=== PATIENT | female | born 1995 | race Caucasian/White ===

== ENCOUNTER 2021-07-04 09:22 | Outpatient (CLI) | payer OTHER, SELFPAY ==
[2021-07-04 10:09] LABS: Basophils Absolute Auto 0.1 K/mm3 (0.0-0.1); Basophils Percent Auto 0.7 % (0.2-1.2); Eosinophils Absolute Auto 0.2 K/mm3 (0-0.3); Eosinophils Percent Auto 2.3 % (0-4.4); Hematocrit 45.6 % (37.0-47.0); Hemoglobin 14.8 g/dL (12.0-15.0); Immature Granulocyte Absolute 0.02 K/mm3 (0.00-0.031); Immature Granulocyte Percent A 0.2 % (0-0.5); Lymphocytes Absolute Auto 3.69 K/mm3 (0.9-3.2); Mean Corpuscular HGB Conc 32.5 g/dl (32-36); Mean Corpuscular Hemoglobin 29.5 pg (26-34); Mean Corpuscular Volume 90.8 fl (80-100); Monocytes Absolute Auto 0.6 K/mm3 (0.1-0.6); Neutrophils Absolute Auto 4.4 K/mm3 (1.3-6.7); Neutrophils Percent Auto 48.8 % (45.5-73.1); Platelet Count Result 320 k/mm3 (150-375); Red Blood Count 5.02 M/mm3 (4.2-5.4); Red Cell Distribution Width 12.7 % (11.5-14.5)
[2021-07-07 07:15] LABS: Progesterone 6.5 ng/mL (***)
== END 2021-07-04 09:23 | disposition home or self-care (01) ==
LOC: ANHLAB 09:31
PROVIDERS: PCP Internal Medicine
DX: N97.9 Female infertility, unspecified (principal)
CPT/HCPCS: 36415; 84144; 84443; 85025

== ENCOUNTER 2022-05-14 03:27 | Emergency (ER) | payer OTHER, SELFPAY ==
[2022-05-14 03:37] VITALS: BP 127/83; PULSE 94; RESP 18; TEMP 36.6; O2SAT 100
--- NOTE | 2022-05-14 03:56 | ED.GENADULT ---
HPI - General Adult General Chief complaint: Vaginal Bleeding Stated complaint: vaginal bleeding, 6 weeks preg Time Seen by Provider: 05/14/22 03:37 History of Present Illness HPI narrative: 26-year-old female presenting to the emergency department for evaluation of vaginal bleeding. Patient suspects she is approximately 6 weeks . Patient has had follow-up with SUPERVISOR EVAPORATOR but has not yet had an ultrasound with this . This is the patient's first . Patient states that she woke up this morning and was having lower abdominal cramping and vaginal bleeding. Patient states that she woke up she had intense abdominal cramping that has since improved. Patient states the vaginal bleeding has also improved. Related Data Allergies Allergy/AdvReac Type Severity Reaction Status Date / Time No Known Allergies Allergy Unverified 01/03/18 14:30 Review of Systems Review of Systems: CONSTITUTIONAL: Denies fever, chills, or sweats. EYES: Denies visual changes, redness, or discharge. ENT: Denies rhinorrhea, congestion, sore throat, or otalgia. CARDIOVASCULAR: Denies chest pain, palpitations, or edema. RESPIRATORY: Denies cough or dyspnea. GASTROINTESTINAL: Denies abdominal pain, nausea, vomiting, or diarrhea. GENITOURINARY: See HPI SKIN: Denies rash or itching. MUSCULOSKELETAL: Denies back pain, joint pain, or myalgia. NEUROLOGIC: Denies headache, numbness, or weakness. Exam Narrative: APPEARANCE: Well appearing, no pain, no distress, well-nourished. HEAD: normocephalic, atraumatic. EYES: PERRLA/EOMI, conjunctivae clear. NOSE: Normal no drainage NECK: Supple. No adenopathy, no masses. RESPIRATORY: Airway patent, respirations nonlabored. Clear to auscultation bilaterally, no rales, rhonchi, wheezing. CARDIOVASCULAR: Regular rate and rhythm without murmurs rubs or gallops. ABDOMINAL: Soft, normal bowel sounds, some suprapubic tenderness to palpation. Pelvic exam: Some brown vaginal bleeding. No hemorrhage MUSCULOSKELETAL: Moves all extremities. Strength/ROM intact, No edema, No calf tenderness. NEURO: Alert. Cranial nerves II through XII intact. Grossly intact Course Course Emergency Course: Patient does feel improved with treatment. Patient states she does have some abdominal cramping but states it is significantly improved. Patient states her nausea is also improved. Patient was updated on the importance of having close follow-up with SUPERVISOR EVAPORATOR and on the reasons to return to the emergency department. All questions and concerns were addressed. Patient was well-appearing at time of discharge. Patient is a positive. No RhoGAM was given. Bedside ultrasound showed possible pole within the uterus. No definitive IUP was seen. Vital Signs Vital signs: Vital Signs Temperature 97.9 F 05/14/22 03:37 Pulse Rate 94 05/14/22 03:37 Respiratory Rate 18 05/14/22 03:37 Blood Pressure 127/83 05/14/22 03:37 Pulse Oximetry 100 05/14/22 03:37 Oxygen Delivery Room Air 05/14/22 03:37 Temperature 97.9 F 05/14/22 03:37 Pulse Rate 94 05/14/22 03:37 Respiratory Rate 18 05/14/22 03:37 Blood Pressure 127/83 05/14/22 03:37 Pulse Oximetry 100 05/14/22 03:37 Oxygen Delivery Room Air 05/14/22 03:37 Medical Decision Making Vital Signs Vital Signs: Vital Signs Temperature 97.9 F 05/14/22 03:37 Pulse Rate 94 05/14/22 03:37 Respiratory Rate 18 05/14/22 03:37 Blood Pressure 127/83 05/14/22 03:37 Pulse Oximetry 100 05/14/22 03:37 Oxygen Delivery Room Air 05/14/22 03:37 Temperature 97.9 F 05/14/22 03:37 Pulse Rate 94 05/14/22 03:37 Respiratory Rate 18 05/14/22 03:37 Blood Pressure 127/83 05/14/22 03:37 Pulse Oximetry 100 05/14/22 03:37 Oxygen Delivery Room Air 05/14/22 03:37 Lab Data Result diagrams: 05/14/22 04:28 05/14/22 04:28 Labs: Lab Results 05/14/22 05/14/22 05/14/22 Range/Units 03:56 04:28 04:
[2022-05-14 04:02] LABS: Appearance Urine Turbid (Clear); Bilirubin Urine 1+ (Negative); Blood Urine 3+ (Negative); Color Urine Amber (Yellow); Glucose Urine UA Negative (Negative); Ketones Urine Trace mg/dL (Negative); Leukocyte Esterase Ur Trace LEU/UL (Negative); Nitrate Urine Negative (Negative); Protein Urine 3+ mg/dL (Negative); Specific Grav Ur >= 1.030 (1.001-1.035); Urobilinogen Urine 0.2 mg/dL (<2.0); pH Urine 6.5 (5.0-9.0)
[2022-05-14 04:22] LABS: Add Urine Microscopic? YES; Bacteria Urine Trace /hpf; Mucus Urine Few /lpf; RBC Urine >75 /hpf (0-2); Squamous Epithelial Cell Urine Many /hpf (Few); WBC Urine 21-30 /hpf
[2022-05-14 04:41] LABS: Basophils Absolute Auto 0.1 K/mm3 (0.0-0.1); Basophils Percent Auto 0.6 % (0.2-1.2); Eosinophils Absolute Auto 0.2 K/mm3 (0-0.3); Eosinophils Percent Auto 1.7 % (0-4.4); Hematocrit 43.4 % (37.0-47.0); Hemoglobin 14.2 g/dL (12.0-15.0); Immature Granulocyte Absolute 0.05 K/mm3 (0.00-0.031); Immature Granulocyte Percent A 0.5 % (0-0.5); Lymphocytes Absolute Auto 3.01 K/mm3 (0.9-3.2); Mean Corpuscular HGB Conc 32.7 g/dl (32-36); Mean Corpuscular Hemoglobin 29.4 pg (26-34); Mean Corpuscular Volume 89.9 fl (80-100); Mean Platelet Volume 9.1 fl (7.4-10.4); Monocytes Absolute Auto 0.7 K/mm3 (0.1-0.6); Monocytes Percent Auto 6.3 % (2.6-8.5); Neutrophils Absolute Auto 6.8 K/mm3 (1.3-6.7); Neutrophils Percent Auto 62.9 % (45.5-73.1); Platelet Count Result 279 k/mm3 (150-375); Red Blood Count 4.83 M/mm3 (4.2-5.4); Red Cell Distribution Width 13.2 % (11.5-14.5); White Blood Count 10.7 K/mm3 (4.5-10.0)
[2022-05-14 04:46] LABS: Alanine Aminotransferase 25 U/L (6-35); Albumin Level 3.7 g/dL (3.5-5.1); Alkaline Phosphatase 50 U/L (38-126); Anion Gap 7 mmol/L (8-16); Aspartate Amino Transferase 22 U/L (14-36); Bilirubin,Total 0.3 mg/dL (0.2-1.3); Blood Urea Nitrogen 12 mg/dL (7-17); Calcium 8.8 mg/dL (8.4-10.2); Carbon Dioxide 22 mmol/L (22-30); Chloride 106 mmol/L (98-107); Estimated Glomerular Filt Rate > 60; Glucose 89 mg/dL (65-110); Potassium 3.8 mmol/L (3.4-5.0); Sodium 135 mmol/L (137-145)
[2022-05-14 04:47] LABS: Prothrombin Time 12.4 Seconds (11.1-14.7)
[2022-05-14 04:48] LABS: Partial Thromboplastin Time 23.7 SECONDS (22.3-36.8)
[2022-05-14] MEDS: NITROFURANTOIN MONOHYD MACROCR 100 MG CAP PO (05:45)
[2022-05-14] MEDS: SODIUM CHLORIDE 0.9% IV 1,000 ML 999 ML IV CONT (05:46)
[2022-05-14 06:53] VITALS: BP 140/82; PULSE 86; RESP 18; O2SAT 98
== END 2022-05-14 06:59 | disposition home or self-care (01) ==
PROVIDERS: Emergency Provider Emergency Medicine
DX: O20.9 Hemorrhage in early pregnancy, unspecified (principal); O23.41 Unspecified infection of urinary tract in pregnancy, first trimester; Z3A.01 Less than 8 weeks gestation of pregnancy
CPT/HCPCS: 36415; 80053; 81001; 81025; 84702; 85025; 85461; 85610; 85730; 87086; 87088; 99284; A9270; J7030

== ENCOUNTER 2024-01-22 17:17 | Emergency (ER) | payer OTHER, SELFPAY ==
--- NOTE | ~2024-01-22 | XR_ITS ---
EXAMINATION: XR ankle LT min 3V DATE: 01/22/2024 17:58 INDICATION: Left ankle injury TECHNIQUE: Anteroposterior, oblique, mortise, and lateral views of the left ankle were obtained. COMPARISON: None. FINDINGS: Alignment is normal. No fracture. Joint spaces are well maintained. No ankle joint effusion. Soft t issue swelling about the lateral malleolus. IMPRESSION: 1. No left ankle joint effusion or osseous abnormality Reviewed, dictated and finalized at location A.
[2024-01-22 17:40] VITALS: BP 110/54; PULSE 67; RESP 18; TEMP 36.2; O2SAT 100
[2024-01-22 17:42] VITALS: BP 110/54; PULSE 67; RESP 18; TEMP 36.2; O2SAT 100
--- NOTE | 2024-01-22 18:06 | ED.EXTPRO ---
HPI - Extremity Problem General Chief complaint: Extremity Problem,Nontraumatic Stated complaint: lt ankle injury Time Seen by Provider: 01/22/24 18:01 Source: patient and RN notes reviewed Mode of arrival: ambulatory Limitations: no limitations History of Present Illness HPI Narrative: Patient presents today complaining of left ankle pain. Patient rolled her ankle while walking down some stairs 5 days ago. She has been trying ibuprofen on ice at home without relief and currently rates her pain 6/10. Denies numbness or tingling. Related Data Home Medications Medication Instructions Recorded Confirmed sertraline 50 mg tablet mg 01/22/24 Allergies Allergy/AdvReac Type Severity Reaction Status Date / Time No Known Allergies Allergy Verified 01/22/24 17:41 Review of Systems Review of Systems: CONSTITUTIONAL: Denies body aches, fever, chills, or sweats. EYES: Denies visual changes, redness, or discharge. ENT: Denies rhinorrhea, congestion, sore throat, or otalgia. CARDIOVASCULAR: Denies chest pain, palpitations, or edema. RESPIRATORY: Denies cough or dyspnea. GASTROINTESTINAL: Denies abdominal pain, nausea, vomiting, or diarrhea. GENITOURINARY: Denies dysuria or hematuria. SKIN: Denies rash, itching, or wounds. MUSCULOSKELETAL: Denies back pain, or myalgia.+ left ankle injury NEUROLOGIC: Denies headache, numbness, tingling, or weakness. PSYCH: Denies depression or anxiety. PMFSH Comments At time of signature, I have reviewed and agree with nursing past medical, surgical, social and family history unless otherwise noted. Please see nursing chart for further information. There is no relevant family history pertinent to the presenting complaint Exam Narrative: GENERAL: Well-appearing, well-nourished, and in no acute distress. HEAD: Normocephalic, atraumatic. EYES: EOMI. No redness or drainage. Conjunctivae normal. ENT: Mucous membranes pink and moist. NECK: Normal AROM. CHEST: No respiratory distress. EXTREMITIES: Left ankle: Tenderness and mild edema laterally. No tenderness medially. No tenderness to the foot. Distal sensation intact. Capillary refill normal. Pedal pulse normal. Decreased range of motion of the ankle due to pain. SKIN: Warm, dry, no rash. Capillary refill normal. Normal skin turgor. NEURO: No focal deficits. Alert and oriented x3. Gait steady. PSYCH: Normal affect. No signs of depression or anxiety. Course Course Level of Care: Express Care Visit Vital Signs Vital signs: Vital Signs Temperature 97.1 F L 01/22/24 17:40 Pulse Rate 67 01/22/24 17:40 Respiratory Rate 18 01/22/24 17:40 Blood Pressure 110/54 L 01/22/24 17:40 Pulse Oximetry 100 01/22/24 17:40 Oxygen Delivery Room Air 01/22/24 17:40 Temperature 97.1 F L 01/22/24 17:42 Pulse Rate 67 01/22/24 17:42 Respiratory Rate 18 01/22/24 17:42 Blood Pressure 110/54 L 01/22/24 17:42 Pulse Oximetry 100 01/22/24 17:42 Oxygen Delivery Room Air 01/22/24 17:42 Reviewed MDM - Extremity (Nontraumatic) MDM Narrative Medical decision making narrative: Ankle x-ray negative. Declines Jared wrap. Discussed follow-up if symptoms do not improve. Anticipatory guidance given. Differential Diagnosis Differential diagnosis: Likely other (Ankle sprain, fracture) Imaging Data Radiologist's impression: ITS Impressions Ankle X-Ray 01/22/24 18:21 IMPRESSION: 1. No left ankle joint effusion or osseous abnormality Critical Care Time Critical Care Time Critical Care Time: No Discharge Plan Discharge Clinical Impression: Left ankle sprain Qualifiers: Encounter type: initial encounter Involved ligament of ankle: unspecified ligament Qualified Code(s): S93.402A - Sprain of unspecified ligament of left ankle, initial encounter Patient Disposition: Home, Self-Care Condition: Stable Instructions: Ankle Sprain (DC) Additional Instructions: Your x-ray is neg
== END 2024-01-22 18:35 | disposition home or self-care (01) ==
PROVIDERS: Emergency Provider Nurse Practitioner
DX: S93.402A Sprain of unspecified ligament of left ankle, initial encounter (principal); X50.9XXA Other and unspecified overexertion or strenuous movements or postures, initial encounter
CPT/HCPCS: 73610; 99213; G0463

== ENCOUNTER 2024-02-15 13:33 | Emergency (ER) | payer OTHER, SELFPAY ==
--- NOTE | 2024-02-15 13:35 | ED.GENADULT ---
HPI - General Adult General Chief complaint: Skin/Abscess/Foreign Body Stated complaint: Rt Breast Pain and Irritation Time Seen by Provider: 02/15/24 13:40 Source: patient, RN notes reviewed and old records reviewed Mode of arrival: ambulatory Limitations: no limitations History of Present Illness HPI narrative: 28-year-old female presents to the [facility] with complaints of pain, redness and swelling to the right breast. Started last night. Has taken Tylenol. Patient currently is breast feeding Onset (ago): day(s) (1) Treatments prior to arrival: cold therapy, heat therapy and other (Acetaminophen) Related Data Home Medications Medication Instructions Recorded Confirmed sertraline 50 mg tablet mg 01/22/24 Allergies Allergy/AdvReac Type Severity Reaction Status Date / Time No Known Allergies Allergy Verified 02/15/24 13:41 Review of Systems Review of Systems: All systems reviewed & are unremarkable except as noted in HPI and below Constitutional: Constitutional: Reports no additional constitutional complaints Eyes: Eyes: Reports no additional eye complaints ENT: Reports system reviewed and no additional complaints, except as documented Cardiovascular: Cardiovascular: Reports no additional cardiovascular complaints, Denies chest pain and Denies dyspnea Respiratory: Respiratory: Reports no additional respiratory complaints, Denies chest congestion, Denies cough and Denies dyspnea Gastrointestinal: Gastrointestinal: Reports no additional gastrointestinal complaints, Denies abdominal pain, Denies nausea and Denies vomiting Musculoskeletal: Musculoskeletal: Reports no additional musculoskeletal complaints Integumentary/Breasts: Skin/Breast: Reports as per HPI, Reports erythema, Reports skin pain and Reports skin swelling Neurologic: Reports system reviewed and no additional complaints, except as documented Psychiatric: Psychiatric: Reports no additional psychiatric complaints Allergic/Immunologic: Allergic/Immunologic: Reports no additional allergic/immunologic complaints PMFSH Comments At the time of my signature, I reviewed and agree with the nursing past medical, surgical, social, and family history. There is no relevant family history pertinent to the patient complaint. Exam Const: General: cooperative, healthy appearing, comfortable, no acute distress, well developed, alert and well nourished Nutritional Appearance: well nourished Orientation/consciousness: patient oriented x3 Limitations: no limitations HENMT: Head: normal to inspection Ears: hearing grossly normal bilaterally and external ears normal Face/Nose/Sinus: Normal external nose present, Normal nares present, Normal nasal mucous membranes and turbinates present, normal facial exam and face symmetric Face and sinus: normal facial exam and face symmetric Mouth: Yes moist mucous membranes Eyes: General: appearance normal, both eyes and all related structures Alignment and Position: alignment normal Periorbital: periorbital findings normal Pupils: Equal, round and reactive pupils present EOM: EOMs intact bilaterally Neck: Neck: normal visual inspection, full ROM, no lymphadenopathy and no meningeal signs Chest: Chest palpation & inspection: normal inspection of the chest Breast/axilla inspection: normal inspection of the axillae Breast/axilla palpation: abnormal palpation of the breast (right breast. lateral erythema, mild swelling, warm to touch) Resp: Effort & Inspection: normal respiratory effort and able to speak in complete sentences Auscultation: clear to auscultation bilaterally, no crackles, no rales, no rhonchi and no wheezes Cardio: Rate: regular rate Rhythm: regular rhythm Back/Spine/Pelvis: Cervical Spine: cervical ROM normal Skin: General skin exam: normal color and no rashes or lesions noted Lesions: no lesions Rashes: no rashes Wounds: no wounds Neuro: General: patient oriented x3, gait normal, tone normal, move
[2024-02-15 13:40] VITALS: BP 110/81; PULSE 95; RESP 18; TEMP 36.3; O2SAT 97
== END 2024-02-15 13:50 | disposition home or self-care (01) ==
PROVIDERS: Emergency Provider Nurse Practitioner
DX: N61.0 Mastitis without abscess (principal)
CPT/HCPCS: 99213; G0463

== ENCOUNTER 2024-03-17 08:29 | Emergency (ER) | payer OTHER, SELFPAY ==
--- NOTE | 2024-03-17 08:33 | ED.SKABFB ---
HPI - Skin/Abscess/Foreign Bdy General Chief complaint: Skin/Abscess/Foreign Body Stated complaint: skin irritation on lt leg Time Seen by Provider: 03/17/24 08:32 Source: patient Mode of arrival: ambulatory Limitations: no limitations History of Present Illness HPI narrative: Sunshine is a 28-year-old female patient presenting to the clinic today with complaints of a rash to her left anterior thigh that began on Saturday. She reports that she thinks she may have been bitten by an insect. She denies any fever, chills, or body aches but states that the area feels swollen and is slightly itchy. Has erythema and redness that is gradually getting worse. Related Data Home Medications Medication Instructions Recorded Confirmed sertraline 50 mg tablet 50 mg PO DAILY 01/22/24 03/17/24 Allergies Allergy/AdvReac Type Severity Reaction Status Date / Time No Known Allergies Allergy Verified 03/17/24 08:43 Review of Systems Review of Systems: Pertinent positives per HPI. Patient denies any fever, chills, headache, visual changes, dizziness, cough, runny nose, sore throat, shortness of breath, chest pain, palpitations, nausea, vomiting, diarrhea, constipation, abdominal pain, or any urinary issues. PMFSH Comments At the time of my signature, I reviewed and agree with the nursing past medical, surgical, social, and family history. There is no relevant family history pertinent to the patient complaint. Exam Narrative: General: Well-developed, morbidly obese, in no apparent distress Head: Normocephalic, atraumatic. Cardio: Regular rate and rhythm, s1 and s2 normal, no murmur appreciated. Resp: Clear to auscultation bilaterally, no rhonchi, rales, wheezing or rubs. Integumentary: [place], warm, and dry, except bite to the left anterior thigh with surrounding erythema with very a mild induration-area of redness approximately 3 cm around insect bite Course Course Emergency Course: Portions of this record may have been created with voice recognition software. Level of Care: Express Care Visit Vital Signs Vital signs: Vital signs reviewed MDM - Skin/Abscess/Foreign Bdy MDM Narrative Medical decision making narrative: At the time of visit patient is resting comfortably on the exam table. Patient appears to be nontoxic. Plan: I suspect patient has a insect bite with an allergic reaction to the left anterior thigh. Will send in prescription for prednisone and triamcinolone cream. Will also send in prescription for doxycycline to cover for a secondary infection. Supportive measures were discussed with the patient and they voiced understanding discharge instructions and agrees to treatment plan. Return precautions reviewed Differential Diagnosis Differential diagnosis: Likely abscess of skin or subcutaneous tissue, viral exanthem, urticaria, allergic reaction to drug, cellulitis, eczema, insect bites, impetigo and contact dermatitis Discharge Plan Discharge Clinical Impression: Insect bite Patient Disposition: Home, Self-Care Condition: Stable Instructions: Antibiotic Form, Insect Bite or Sting (ED) Additional Instructions: Keep area clean and dry Take Tylenol/Motrin as needed for pain or fever Take doxycycline, triamcinolone cream, and prednisone as prescribed May apply cool compress to the area to help alleviate swelling and discomfort Watch for signs and symptoms of worsening infection-high fever not controlled by Tylenol Motrin, increase in redness, increase in swelling, increasing pain, purulent drainage, or streaking Prescriptions: New doxycycline monohydrate 100 mg capsule 100 mg PO BID 7 Days Qty: 14 0RF prednisone 20 mg tablet 40 mg PO DAILY 5 Days Qty: 10 0RF triamcinolone acetonide 0.1 % cream 1 applic topical BID 7 Days Qty: 30 0RF No Action sertraline 50 mg tablet 50 mg PO DAILY Follow-up/Referrals: PHYSICIAN,DIRECTOR PRODUCT [Non-Staff] - Time of Dispositio
[2024-03-17 08:40] VITALS: BP 107/65; PULSE 76; RESP 16; TEMP 36.2; O2SAT 100
== END 2024-03-17 08:47 | disposition home or self-care (01) ==
PROVIDERS: Emergency Provider Nurse Practitioner Family
DX: S70.362A Insect bite (nonvenomous), left thigh, initial encounter (principal); W57.XXXA Bitten or stung by nonvenomous insect and other nonvenomous arthropods, initial encounter; F41.9 Anxiety disorder, unspecified
CPT/HCPCS: 99213; G0463

== ENCOUNTER 2024-06-11 08:19 | Emergency (ER) | payer OTHER, SELFPAY ==
[2024-06-11 08:36] VITALS: BP 124/84; PULSE 82; RESP 18; TEMP 36.6; O2SAT 100
--- NOTE | 2024-06-11 08:40 | ED.EAR ---
HPI - Ear Problem General Chief complaint: Ear Stated complaint: ear examination Time Seen by Provider: 06/11/24 08:40 Source: patient, RN notes reviewed and old records reviewed Mode of arrival: ambulatory Limitations: no limitations History of Present Illness HPI Narrative: Patient presents with complaints of sensation of clogged left ear with some associated ringing. Symptoms have been present for almost a week. She reports that the sensation of being clogged is much more bothersome than the sensation of ringing. She denies any injury or trauma. She does have a little bit of a runny nose. Other than that she voices no other concerns or complaints. Patient has chronic migraines, states this is at baseline and not bothersome today. She reports frequent illness since her child started daycare. Related Data Home Medications Medication Instructions Recorded Confirmed sertraline 50 mg tablet 50 mg PO DAILY 01/22/24 06/11/24 loratadine 10 mg tablet (Claritin) 10 mg PO DAILY 05/04/24 06/11/24 cholecalciferol (vitamin D3) 10 10 mcg PO DAILY 06/11/24 06/11/24 mcg (400 unit) tablet cyanocobalamin (vitamin B-12) 100 100 mcg PO DAILY 06/11/24 06/11/24 mcg tablet Allergies Allergy/AdvReac Type Severity Reaction Status Date / Time No Known Allergies Allergy Verified 06/11/24 08:41 Review of Systems Review of Systems: All systems reviewed & are unremarkable except as noted in HPI and below Constitutional: Constitutional: Reports no additional constitutional complaints ENT: Reports system reviewed and no additional complaints, except as documented and Reports as per HPI Cardiovascular: Cardiovascular: Reports no additional cardiovascular complaints Respiratory: Respiratory: Reports no additional respiratory complaints Gastrointestinal: Gastrointestinal: Reports no additional gastrointestinal complaints Neurologic: Reports system reviewed and no additional complaints, except as documented and Reports as per HPI PMFSH Past Medical History Medical History Anxiety Chronic migraine Tonsillectomy planned Family History Family History Father Skin cancer Hypertension Depression Mother Blood clot in vein Sibling Asthma Depression Other Asthma Grandparent Skin cancer Depression Social History Social History Smoking status: Never smoker Alcohol intake: never Substance use: current Living arrangements: with family Occupation/Education: occupation Additional occupation/education comments: Self employed [employer] Gender identity (if verbalized by the patient): Female Agree to blood products: Yes Comments At the time of my signature, I reviewed and agree with the nursing past medical, surgical, social, and family history. There is no relevant family history pertinent to the patient complaint. Exam Const: General: cooperative, no acute distress, alert and awake Orientation/consciousness: oriented to person, oriented to place and oriented to time HENMT: Head: normal to inspection Ears: TM's normal bilaterally and EAC's normal Face/Nose/Sinus: Nasal discharge present clear Mouth: Yes Normal oral and palatal mucosa present and Yes moist mucous membranes Throat: posterior oropharynx normal Resp: Effort & Inspection: normal respiratory effort and able to speak in complete sentences Auscultation: clear to auscultation bilaterally, no crackles, no rales, no rhonchi and no wheezes Cardio: Palpation: normal PMI Rate: regular rate Rhythm: regular rhythm Heart sounds: S1 normal heart sound present and S2 normal heart sound present Neuro: General: oriented to person, oriented to place and oriented to time Cranial nerves: Yes CN's II-XII intact bilaterally Psych: Appearance: grossly normal Thought process: Normal though
== END 2024-06-11 09:00 | disposition home or self-care (01) ==
PROVIDERS: Emergency Provider Nurse Practitioner Family
DX: H92.02 Otalgia, left ear (principal); F41.9 Anxiety disorder, unspecified
CPT/HCPCS: 99211; G0463

== ENCOUNTER 2025-03-15 18:48 | Outpatient (CLI) | payer OTHER, SELFPAY ==
--- OUTSIDE RECORDS SUMMARY | 2025-03-15 18:54 | XMS_ITS | Clinical Summary ---
Author Organization [email or web address] Address [address] [place] [address] Care Team Providers Care Candlemaking Laborer Name Role Phone Meli Bustamante MD Primary Care Provider [phone] [email or web address],non-owned Affiliates and Associated Physician Practices is amultiple site organization consisting of ambulatory clinics and hospital sitesin [place], [place], [place] and [place]. This disclosure is being madepursuant to the Care Everywhere program and may not contain all information available regarding this patient. Last updated 18.[email or web address] Allergies No known active allergies Medications * Be aware that medications may not be up to date on this document. Alwaysverify current medications with the patient. clomiPHENE (Clomid) 50 MG tablet Take 1 (one) tablet by mouth once daily 5 tablet 2 4 Active Additional Information Patient not taking.Reported on 12/10/2024 sertraline (Zoloft) 50 MG tablet Take 1 tablet by mouth once daily 90 tablet 1 5 Active vitamin D, ergocalciferol, (Drisdol) 1.25 MG (22625 UT) capsule Take 1 (one) capsule by mouth every 7 days 8 capsule 5 Active Progesterone 100 MG capsule Take 1 (one) capsule by mouth 2 times daily 60 capsule 2 5 Active Vit-Fe Fumarate-FA ( vitamin) 28-0.8 MG tablet Take 1 (one) tablet by mouth once daily Active prochlorperazin e (Compazine) 10 MG tablet Take 1 (one) tablet by mouth every 8 hours as needed for Nausea/Vomiting 25 tablet 1 Active ondansetron, disintegrating, (Zofran ODT) 4 MG tablet Take 1 (one) tablet by mouth every 6 hours as needed for Nausea/Vomiting Allow tablet to dissolve on the tongue 30 tablet 5 Active Active Problems Problem Noted Date Diagnosed Date Normal in third trimester 12/31/2022 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 , twins, antepartum 05/15/2022 Subchorionic hemorrhage of placenta in first tri mester 05/15/2022 Patellofemoral syndrome of both knees 06/16/2018 Estimated Date of Delivery Comme nts Yes 07/29/2025 Based on last me nstrual period of 10/22/2024 (Exact Date) Encounters Date Type Department Care Team Description 02/01/2025 Refill [facility] - AMUSEMENT OR RECREATION CARD CHECKER [address] [place] [phone] Daniel Cochran MD Refill Request 01/19/2025 1:00 PM CDT visit [facility] - AMUSEMENT OR RECREATION CARD CHECKER [address] [place] [address], [address] [address] Daniel Cochran MD [place]: 12w5d 01/19/2025 Travel 12/21/2024 11:20 AM CLUBHOUSE ATTENDANT visit [facility] - AMUSEMENT OR RECREATION CARD CHECKER [address] [place] [address], [address] [address] Daniel Cochran MD 12/21/2024 10:30 AM CLUBHOUSE ATTENDANT OBGYN RADIOLOGY [facility] AMUSEMENT OR RECREATION CARD CHECKER [address] [place] [address], [address] [address] Missed period ; 8 weeks gestation of from Last 3 Months Immunizations Immunization Administration Dates Next Due DTAP 5 PERTUSSIS ANTIGENS 08/25/2002,11/1997,03/23/1997,01/13,1996 HEP B VACCINE, PED/ADOL 03/23/1997,1996, HIB-PRP-T 4 DOSE 01/20/1998, 7,01/13/1997,11/04 Human Papilloma Virus Gabriela valent Vaccine 02/25/2008,12/05/2007 INFLUENZA VACCINE, CELL CULT URE, QUADR. (FLUCELVAX QUADRIVALENT; 6MO+) (CCIIV4) 11/30/2022 INFLUENZA VACCINE, QUADR. (F LUZONE; FLULAVAL; FLUARIX; AFLURIA QUADRIVALENT; 6MO+), 0.5 ML (IIV4) 08/10/2019 MENINGOCOCCAL ACWY (MCV4P) VAC IM 12/05/2007 MMR 07/25/2000,01/20/1998 POLIO IPV 08/25/2002, 8,01/13/1997,11/04 TDAP (7yrs+) 11/12/2022,12/05/2007 VARICELLA 08/04/1997 Social History Tobacco Use Types Packs/Day Years Used Date Smoking Tobacco: Never Passive Smoke Exposure: Never Smokeless Tobacco: Never Tobacco Cessation:Counseling Given: Not Answered Alcohol Use Standard Drinks/Week Comments Not Currently 0 (1 standard drink = 0.6 oz pur e alcohol) Overall Financial Resource Strain (CARDIA) Answe r Date Recorded How hard is it for you to pa y for the very basics like food, housing, medical care, and heating? Not hard at all 12/31/2022 PHQ-2 Answer Date Recorded Patient Health Questionnaire-2 Score 1 12/15/2024 [facility] - Occupational Stress Questionnaire Answer Date Recorded Do you feel stress - tense, restless, nervous, or anxious, or unable to sleep at night because your mind is troubled all the time - these days? Only a little 12/31/2022 Hunger Vital Sign Answer Date Recorded Within the past 12 months, y ou worried that your food would run out before you got the money to buy more. Never true 01/01/20 23 Within the past 12 months, t he food you bought just didn't last and you didn't have money to get more. Never true 12/31/2022 PRAPARE - Transportation Answer Date Re corded In the past 12 months, has l ack of transportation kept you from medical appointments or from getting medications? No 12/19 In the past 12 months, has l ack of transportation kept you from meetings, work, or from getting things needed for daily living? No 12/31/2022 Housing Stability Vital Sign Answer Emery e Recorded In the last 12 months, was t here a time when you were not able to pay the mortgage or rent on time? No 12/31/2022 In the last 12 months, how many places have you lived? 1 12/31/2022 In the last 12 months, was t here a time when you did not have a steady place to sleep or slept in a mcfp (including now)? No 12/31/2022 Cherokee Depression Scale Answer Date Recorded Cherokee Depression Scale Total 9 02/12/2023 The thought of harming myself has occurred to me . Never 02/12/2023 Estimated Date of Delivery Comme nts Yes 07/29/2025 Based on last me nstrual period of 10/22/2024 (Exact Date) Sex and Gender Information Value Date Recorded Sex Assigned at Female 08/15/2021 8:25 AM CDT Legal Sex Female 11:29 AM CDT Gender Identity Female 08/15/2021 8:25 AM CDT Sexual Orientation Not on file Last Filed Vital Signs Vital Sign Reading Time Taken Comments Blood Pressure 124/78 01/19/2025 1:17 PM CDT Pulse 70 01/02/2023 3:58 PM CDT Temperature 36.7 C (98.1 F) 01/02/2023 3:58 PM CDT Respiratory Rate 18 01/02/2023 3:58 PM CDT Oxygen Saturation 100% 01/02/2023 3:58 PM CDT Inhaled Oxygen Concentration - - Weight 154.7 kg (341 lb) 01/19/2025 1:17 PM CDT Height 170.2 cm (5' 7 ) 01/19/2025 1:17 PM CDT Body Mass Index 53.41 01/19/2025 1:17 PM CDT Plan of Treatment Upcoming Encounters Date Type Department Care Team (Late st Contact Info) Description 03/30/2025 9:45 AM CDT Appointment [facility] Women's Health Maternal & Care [address] [place] [address] 03/30/2025 10:30 AM CDT Appointment [facility] Maternal & Care [address] [place] [address] Health Maintenance Due Date Last Done Comments HPV VACCINE (3 - 2-dose series) 06/04/2008 02/25/2008, 12/05/2007 HEPATITIS C SCREENING 07/16/2014 COVID-19 VACCINE ( season) 2024 04/01/2021, 02/26/2021 OB-ONE HOUR GLUCOSE 04/22/2025 10/01/2022 OB-TDAP CURRENT 04/29/2025 11/12/2022, INFLUENZA VACCINE (Season Ended) 2025 11/30/2022, 08/10/2019 Respiratory Syncytial Virus (RSV) Vaccine Pt: or over 60 yrs (1 - Risk 1-dose series) 06/21/2025 OB-GROUP B STREP SCREEN 06/24/2025 11/30/2022, 01/27 PAP SMEAR 12/10/2027 12/10/2024, 06/21, 06/14/2023, Additional history exists DTAP/TDAP/TD VACCINES (8 - Td or Tdap) 11/12/2032 11/12/2022, 12/05/2007, 08/25/2002, Additional history exists ZOSTER VACCINE (1 of 2) 2046 HEPATITIS B VACCINE Completed 03/23/1997, 1996, 1996 HIB VACCINE Completed 01/20/1998, 12/1996, 01/13/1997, Additional history exists MENINGOCOCCAL GROUPS A/C/Y/W VACCINE Aged Out 12/05/2007 No longer eligible based on patient's age to complete this topic DEPRESSION SCREENING Completed 12/10/2024, 02/21/2024, 10/01/2022 HIV SCREENING Completed 12/10/2024, 05/11/2022 MENINGOCOCCAL (Group B) VACCINE SHARED DECISION-MAKING Aged Out No longer eligible based on patient's age to complete this topic PNEUMOCOCCAL VACCINE Aged Out No long er eligible based on patient's age to complete this topic Procedures Procedure Name Priority Date/Time Associated Diagnosis Comments [id number] PLUS CORE Routine 01/19/2025 1:42 PM CDT SONOGRAM - TRANSVAGINAL Routine 12/21/2024 10:35 AM CLUBHOUSE ATTENDANT Missed period 8 weeks gestation of PAP IG LB CT+NG+TV RFLX HPV ASCU Routine 12/10/2024 3:52 PM CLUBHOUSE ATTENDANT 7 weeks gestation of HIV-1 HIV-2 ANTIBODY + HIV P24 AG PANEL Routine 12/10/2024 3:34 PM CLUBHOUSE ATTENDANT 7 weeks gestation of CULTURE STREP B Routine 11/30/2022 9:56 AM CLUBHOUSE ATTENDANT 35 weeks gestation of GLUCOSE CHALLENGE Routine 10/01/2022 10: 00 AM CLUBHOUSE ATTENDANT 23 weeks gestation of from Last 3 Months or Most Recently Relevant to Health Maintenance Results * [id number] PLUS CORE (01/19/2025 1:42 PM CDT) Gestation Eason [facility] ACCOUNT BILL Fraction (%) 12% [facility] ACCOUNT BILL Gestational Age > or = 9w Yes [facility] ACCOUNT BILL Result Negative [facility] ACCOUNT BILL Camp Boss Comments Comment [facility] ACCOUNT BILL Comment: This specimen showed an expected representation of chromosome 21, 18 and 13 material. Clinical correlation is suggested. Approved By Comment [facility] ACCOUNT BILL Comment:Johnny Rey MD , PhD, Director, [employer] Trisomy 21 (Down Syndrome) Negative [facility] ACCOUNT BILL Trisomy 18 (Ponce Syndrome) Negative [facility] ACCOUNT BILL Trisomy 13 Negative [facility] ACCOUNT BILL Sex Comment [facility] ACCOUNT BILL Comment:Consistent with Male Negative Predictive Value Note [facility] ACCOUNT BILL Comment: The Negative Predictive Value (NPV) for trisomy 21, 18, and 13 is greater than 99%. The NPV for SCA and ESS cannot be calculated as SCA and ESS are only reported when an abnormality is detected. Positive predictive value N/A [facility] ACCOUNT BILL About The Test Comment [facility] ACCOUNT BILL Comment: The MaterniT(R) 21 PLUS laboratory-developed test (LDT) analyzes circulating cell-free DNA from a maternal blood sample. This test is used for screening purposes and not diagnostic. Clinical correlation is recommended. Validation data on twin pregnancies is limited and the ability of this test to detect aneuploidy in higher multiple gestations has not yet been validated. Test Method Comment [facility] ACCOUNT [facility]INA Comment: See Notes Circulating cell-free DNA was purified from the plasma component of maternal blood. The extracted DNA was then converted into a genomic DNA library for aneuploidy analysis of chromosomes 21, 18, and 13 via next generation sequencing.[1' Optional findings based on the test order include sex chromosome aneuploidy (SCA)[2', and enhanced sequencing series (ESS)[3', which will only be reported on as an additional finding when an abnormality is detected. SCA testing includes information on X and Y representation, while ESS testing includes deletions in selected regions (22q, 15q, 11q, 8q, 5p, 4p, 1p) and trisomy of chromosomes 16 and 22. Performance Comment [facility] ACCOUNT [facility]INA Comment: The performance characteristics of the MaterniT(R) 21 PLUS laboratory-developed test (LDT) have been determined in a clinical validation study with women at increased risk for chromosomal aneuploidy.[1-4' Performance Characteristics Note [facility] LEATHA ANDINO Comment: ! Sex ! Accuracy: 99.4% ! ! ! ! Region (associated syndrome) ! Est. Sens# ! Est. Spec ! ! ! ! Trisomy 21 (Down Syndrome) ! 99.1% ! 99.9% ! ! ! ! Trisomy 18 (Ponce Syndrome) ! >99.9% ! 99.6% ! ! ! ! Trisomy 13 (Patau Syndrome) ! 91.7% ! 99.7% ! ! ! ! Sex Chromosome Aneuploidies## ! 96.2% ! 99.7% ! ! ! * As reported in [facility] database nstd37 [https://www.ncbi.nlm.nih.gov/dbvar/studies/nstd37/ ' # Estimated Sensitivity. Sensitivity estimated across the observed size distribution of each syndrome [per [employer] database nstd37' and across the range of fractions observed in routine clinical NIPT. Actual sensitivity can also be influenced by other factors such as the size of the event, total sequence counts, amplification bias, or sequence bias. ## Eason gestation only. Limitations Of The Test Comment [facility] ACCOUNT BILL Comment: While the results of these tests are highly reliable, discordant results, including inaccurate sex prediction, may occur due to placental, maternal, or mosaicism or neoplasm; vanishing twin; prior maternal organ transplant; or other causes. These tests are screening tests and not diagnostic; they do not replace the accuracy and precision of diagnosis with CVS or amniocentesis. A patient with a positive test result should be referred for genetic counseling and offered invasive diagnosis for confirmation of test results.[5' The results of this testing, including the benefits and limitations, should be discussed with a qualified healthcare provider. management decisions, including termination of the , should not be based on the results of these tests alone. The healthcare provider is responsible for the use of this information in the management of their patient. Sex chromosomal aneuploidies are not reportable for known multiple gestations. A negative result does not ensure an unaffected nor does it exclude the possibility of other chromosomal abnormalities or defects which are not a part of these tests. An uninformative result may be reported, the causes of which may include, but are not limited to, insufficient sequencing coverage, noise or artifacts in the region, amplification or sequencing bias, or insufficient fraction. These tests are not intended to identify pregnancies at risk for neural tube defects or ventral wall defects. Testing for whole chromosome abnormalities (including sex chromosomes) and for subchromosomal abnormalities could lead to the potential discovery of both and maternal genomic abnormalities that could have major, minor, or no, clinical significance. Evaluating the significance of a positive or a non-reportable result may involve both invasive testing and additional studies on the mother. Such investigations may lead to a diagnosis of maternal chromosomal or subchromosomal abnormalities, which on occasion may be associated with benign or malignant maternal neoplasms. These tests may not accurately identify triploidy, balanced rearrangements, or the precise location of subchromosomal duplications or deletions; these may be detected by diagnosis with CVS or amniocentesis. The ability to report results may be impacted by maternal BMI, maternal weight, maternal systemic lupus erythematosus (SLE) and/or by certain pharmaceutical agents such as low molecular weight heparin (for example: Lovenox(R), Xaparin(R), Clexane(R) and Fragmin(R)). Note Comment [facility] ACCOUNT BILL Comment: See Notes [employer] is a subsidiary of [employer], using the brand [employer]. This test was developed and its performance characteristics determined by [employer]. It has not been cleared or approved by the Food and Drug Administration. This laboratory is certified under the Clinical Laboratory Improvement Amendments (CLIA) as qualified to perform high complexity clinical laboratory testing and accredited by the College of [place] [employer] (CAP). If there is future clinical need for adding MaterniT GENOME testing, this specimen will be available until term. [facility] samples will not be retained beyond 60 days. [facility] patients will have to send a new sample for re-sequencing ([facility] Test Code: 818081). References Comment [facility] ACCOUNT BILL Comment: 1. Porfirio NESBITT et al. [place] Med. 2012;14(3):296-305. 2. Rian RUBALCAVA et chica. Prenat Diag. 2013;33(6):591-597. 3. Andrews White, et al. Clin Chem. 2015 Apr;61(4):608-616. 4. Porfirio NESBITT et al. [place] Med. 2011;13(11):913-920. 5. ACOG/SMFM Practice Bulletin No. 226, Jul 2020. 01/19/2025 1:42 PM CDT 01/19/2025 Narrative [facility] ACCOUNT BILL - 01/24/2025 6:41 AM CDT Performed at: [facility] [address] [place] [id number] Camp Boss: Johnny Mo, Phone: [phone] us Daniel Cochran MD LAB - CHEMISTRY ORDERABLES Final Result Performing Organization Address City/State/[facility] Co de Phone Number [facility] ACCOUNT BILL [address] [place] [address] * SONOGRAM - TRANSVAGINAL (12/21/2024 10:35 AM CLUBHOUSE ATTENDANT) Linked Results Indication ======== Missed Period , Dating Method ====== Transvaginal ultrasound ========= Eason . Number of embryos: 1 Dating ====== Date Details Gest. age ANNE LMP 10/23/2024 8 w + 3 d 07/30/2025 U/S 12/21/2024 based upon CRL 8 w + 0 d 08/02/2025 Assigned dating based on the LMP, selected on 12/21/2024 8 w + 3 d 07/30/2025 Assessment Gestational sac: visualized. Location: intrauterine Yolk sac: visualized Embryo: visualized Cardiac activity: present CRL 15.9 mm 8w 0d 16% Hadlock FHR 170 bpm Maternal Structures Uterus Position: anteverted Right Ovary Visualized Size 38 mm x 25 mm x 24 mm. Vol 11.5 cm Cyst(s) Size 22.6 mm x 21.7 mm x 22.9 mm. Mean 22.4 mm. Vol 5.880 cm . Simple cyst Left Ovary Visualized Size 29 mm x 23 mm x 16 mm. Vol 5.6 cm Impression ========= Viable , Single, intrauterine Coding ====== Procedures [id number]: US Preg Uterus Transvaginal . [facility] gDecide PACS Anatomical Region Laterality Modality Other 12/21/2024 10:3 5 AM CLUBHOUSE ATTENDANT Daniel Cochran MD [facility] ORDERABLES Edited Resu lt - Final * PAP IG LB CT+NG+TV RFLX HPV ASCU (12/10/2024 3:52 PM CLUBHOUSE ATTENDANT) Diagnosis Comment [facility] ACCOUNT BILL Comment:NEGATIVE FOR INTRAEP ITHELIAL LESION OR MALIGNANCY. Specimen Adequacy Comment [facility] ACCOUNT BILL Comment: Satisfactory for evaluation. No endocervical component is identified. An endocervical component is not commonly seen in the patient. Clinician Provided ICD10 Comment [facility] ACCOUNT BILL Comment:Z3A.01 Clinical History Comment [facility] ACCOUNT BILL Comment:ONE CODE Z3A CANNOT BE PRIMARY CODE Performed by Comment [facility] ACCOUNT BILL Comment:Rhiannon Jean, Cytot echnologist (ASCP) Comment . [facility] ACCOUNT BILL Note Comment [facility] ACCOUNT BILL Comment: The Pap smear is a screening test designed to aid in the detection of premalignant and malignant conditions of the uterine cervix. It is not a diagnostic procedure and should not be used as the sole means of detecting cervical cancer. Both false-positive and false-negative reports do occur. IGL[facility] CPT Code Automation Comment [facility] ACCOUNT BILL Comment: This liquid based ThinPrep(R) pap test was screened with the use of an image guided system. Note Comment [facility] ACCOUNT BILL Comment: The HPV DNA reflex criteria were not met with this specimen result therefore, no HPV testing was performed. Chlamydia trachomatis GRAEME Negative Negative [facility] ACCOUNT BILL GC GRAEME Negative Negative [facility] ACCOUNT BILL Trichomonas vaginalis by GRAEME Negative Negative [facility] ACCOUNT BILL PART OF UTERINE CERVIX / Unknown 12/10/2024 3:52 PM CLUBHOUSE ATTENDANT 12/10/2024 Comment:Cervix Release to pa t Narrative [facility] ACCOUNT BILL - 12/14/2024 5:09 PM CLUBHOUSE ATTENDANT Performed at: - [facility] [id number] Camp Boss: Marianne Koehler MD, Phone: [phone] Performed at: - [facility] [id number] Camp Boss: Marianne Koehler MD, Phone: [phone] Specimen Comment: [id number] Specimen Comment: No. of containers..01 ThinPrep Vial Daniel Cochran MD LAB - PATHOLOGY/CYTOLOGY OR DERABLES Final Result Performing Organization Address City/[facility] Co de Phone Number [facility] ACCOUNT BILL [address] [place] [address] * HIV-1 HIV-2 ANTIBODY + HIV P24 AG PANEL (12/10/2024 3:34 PM CLUBHOUSE ATTENDANT) Pathologist [facility] HIV Screen 4th Generation w Reflex Non Reactive Non Reactive [facility] ACCOUNT BILL Comment: HIV-1/HIV-2 antibodies and HIV-1 p24 antigen were NOT detected. There is no laboratory evidence of HIV infection. HIV Negative Blood BLOOD SPECIMEN / Unknown 12/10/2024 3:34 PM CLUBHOUSE ATTENDANT 12/10/2024 Narrative [facility] ACCOUNT BILL - 12/11/2024 7:09 AM CLUBHOUSE ATTENDANT Performed at: - [facility] [id number] Camp Boss: Kasi Powers PhD, Phone: [phone] Daniel Cochran MD LAB - CHEMISTRY ORDERABLES Final Result Performing Organization Address City/[facility] Co de Phone Number [facility] ACCOUNT BILL [address] [place] [address] * (ABNORMAL) CULTURE STREP B (11/30/2022 9:56 AM CLUBHOUSE ATTENDANT) Strep Group B Culture Positive( A) Negative [facility] ACCOUNT BILL Comment: Centers for Disease Control and Prevention (CDC) and [place] Congress of Obstetricians and Gynecologists (ACOG) guidelines for prevention of group B streptococcal (GBS) disease specify co-collection of a vaginal and rectal swab specimen to maximize sensitivity of GBS detection. Per the CDC and ACOG, swabbing both the lower vagina and rectum substantially increases the yield of detection compared with sampling the vagina alone. . Penicillin G, ampicillin, or cefazolin are indicated for intrapartum prophylaxis of GBS colonization. Reflex susceptibility testing should be performed prior to use of clindamycin only on GBS isolates from penicillin-allergic women who are considered a high risk for anaphylaxis. Treatment with vancomycin without additional testing is warranted if resistance to clindamycin is noted. Microbiology MISCELLANEOUS SAMPLES / Unknown 11/30/2022 9:56 AM CLUBHOUSE ATTENDANT 11/30/2022 Narrative Resulting Agency Comment Lab Testing performed at: [place] [place] [id number] Daniel Cochran MD LAB - MICROBIOLOGY ORDERABL ES Final Result [facility] ACCOUNT BILL [address] [place] [address] * GLUCOSE CHALLENGE (10/01/2022 10:00 AM CLUBHOUSE ATTENDANT) GTT 1Hr 115 70 - 139 mg/dL [facility] ACCOUNT BILL Comment: According to ADA, a glucose threshold of >139 mg/dL after 50-gram load identifies approximately 80% of women with gestational diabetes mellitus, while the sensitivity is further increased to approximately 90% by a threshold of >129 mg/dL. FASTING Blood BLOOD SPECIMEN / Unknown 10/01/2022 10:00 AM CLUBHOUSE ATTENDANT 10/01/2022 Narrative Resulting Agency Comment Lab Testing performed at: [facility] [phone] us Daniel Cochran MD LAB - CHEMISTRY ORDERABLES Final Result [facility] ACCOUNT BILL [address] [place] [address] from Last 3 Months or Most Recently Relevant to Health Maintenance Insurance [facility] Advance Directives * Full Code (Latest Code Status on File) Date Activated Date Inactivated Comments 12/31/2022 6:16 AM 01/02/2023 9:06 PM * Full Code Date Activated Date Inactivated Comments 12/31/2022 6:02 AM 12/31/2022 6:16 AM Care Teams Candlemaking Laborer Relationship Specialty Start Date End Date Meli Bustamante MD PCP - General Internal Medicine 06/16/18
--- OUTSIDE RECORDS SUMMARY | 2025-03-15 18:54 | XMS_ITS | Data Portability ---
Author Organization [facility] [place] Address [address] [place] [address] Assessment Encounter Date Assessment Date Assessment LastModified by Organization Details LastModified Time 03/09/2025 03/09/2025 Patient is ___weeks . Discussed plan. Not available 03/09/2025 12:20:02 Plan of Treatment Reminders Order Date Submit Date Provider Last Modified By Organization Details Last Modified Time Details Appointments U/S OB BASELIN E 2024 03:00P M ULTRASOUND Not available Not available Not available OB ROUTINE 2024 03:45P M LENNIE PITTS MD Not available Not available Not available Lab TSH, serum or plasma 2024 025 [facility] (Lab), [address] , [place], [address], 03/10/2025 04:45:02 free T3, quantit ative, dialysi s serum or plasma 2024 025 [facility] (Lab), [address], [place], [address], 03/10/2025 04:45:03 T4, free, serum 2024 025 [facility] (Lab), [address], [place], [address], 03/10/2025 04:45:03 Referral None recorde d. Procedures None recorde d. Surgeries None recorde d. Imaging US, obstetr ic, 2nd or 3rd trimest er 2024 025 [email or web address] [place], [address], [place], [address], 03/09/2025 21:37:50 US, [facility], limited 2024 025 [email or web address] [place], [address], [place], [address], 02/15/2025 18:30:12 Medication Orders None recorde d. Patient TargetsNo targets recorded. Patient InstructionsNo instructions recorded. Reason for Referral None Reported. Results Created Date Observation Date Name Description Value Unit Range Abnormal Flag Note LastModifiedBy Organization Detail LastModifiedTime 02/05/2002/04/2025 CULTU RE: URINE result report SEE RESULT S BELOW Test: Cultu re: Urine Speci men Sourc e: Urine - Clean Catch Speci men Type: Urine Speci men Date: 20249 Resul t Date: 20247 Resul t Statu s: Final resul t Abnor mal: No Resul ting Lab: [facility] [address] [facility] [address] Tel: CULTU RE ----- ----- ----- --- Cultu re resul t (>=3 organ isms prese nt) indic ates possi ble conta minat ion. Repea t cultu re if sympt oms indic ate. Not Available [facility] (Lab) [address] [place], [address], 02/06/2025 00:00:39 03/09/2003/09/2025 TSH TSH 2.61 uIU/m L 0.30-5 .33 Not Available [facility] (Lab) [address] [place], [address], 03/10/2025 04:45:02 03/09/20 25 03/09/2025 FREE T3 T3, free 2.94 pg/mL 2.00-4 .40 This assay is carlos ptibl e to inter feren ce from high level s of bioti n which may false ly eleva te resul ts. Pleas e corre late with clini fahad findi ngs inclu ding TSH and FT4 resul ts. If clini juanpablo indic ated, Free T3 by Erickil elliott Burris sis LC/MS may be perfo rmed. Not Available [facility] (Lab) [address], [place], [address], 03/10/2025 04:45:02 02/16/20 25 02/15/2025 US, obste tric, limit ed No observ ation record ed. [facility] [address], [place], [address], 02/15/2025 17:56:43 02/16/20 25 02/15/2025 US, obste tric, follo w-up No observ ation record ed. [email or web address], [place], [address], 03/02/2025 17:38:56 03/09/20 25 03/09/2025 US, obste tric, 2nd or 3rd trime ster No observ ation record ed. [facility] [address], [place], [address], 03/09/2025 11:45:26 03/09/20 25 03/09/2025 US, obste tric, 2nd or 3rd trime ster No observ ation record ed. [email or web address] [address], [place], [address], 03/11/2025 18:25:47 Result Notes None recorded. Problems Name Problem SNOMED Code Status Onset Date Resolution Date Notes Provider Name and Address Organization Details Recorded Time 01674658 Active 2024 Clarissa Jewell [facility], [place] - [facility] 15:59:40 Mixed anxiety and depressiv e disorder 200009053 Active 2024 treated with 50mg sertralin e Gregory Monge MD [address], [place], [address], [facility] 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 5 10:44:18 Migraine without aura, not refractor y 722324665 Active 2024 Gregory Monge MD [address], [place], [address], [facility] 5 16:04:15 Serum thyroid stimulati ng hormone level outside reference range 566098005 Active 2024 consider treating TSH of 3.2, could repeat TSH Gregory Monge MD [address], [place], [address], [facility] 5 16:24:16 Placenta circumval sean 9137698 Active 2024 32wk growth [facility] 22:10:47 Problem Notes None recorded. Procedures Surgical History Date Name Laterality Status Provider Name and Address Organization Details Recorded Time 5 Date of Last Pap Smear completed [facility] 02/04/2025 15:44:36 5 tonsilectomy/a denoids completed [facility] 02/04/2025 15:48:12 2 operation on bone of skull completed [facility] 02/04/2025 15:47:45 Imaging Results None recorded. Procedure Notes None recorded. Medical Equipment None Reported. Allergies No known drug allergies Medications Name Sig Start Date Stop Date Status Note LastModified by Organization Details LastModified Time prednisone 20 mg tablet TAKE 2 TABLETS BY MOUTH ONCE DAILY FOR 5 DAYS 02/04 completed Not Available Not Available Not Available prochlorper azine maleate 10 mg tablet TAKE 1 TABLET BY MOUTH EVERY 8 HOURS NEEDED FOR NAUSEA AND VOMITING 02/04 completed Not Available Not Available Not Available triamcinolo ne acetonide 0.1 % topical cream APPLY CREAM EXTERNALL Y TO AFFECTED AREA TWICE DAILY FOR 7 DAYS 02/04 completed Not Available Not Available Not Available doxycycline monohydrate 100 mg capsule TAKE 1 CAPSULE BY MOUTH TWICE DAILY FOR 7 DAYS 02/04 completed Not Available Not Available Not Available cephalexin 500 mg capsule TAKE 1 CAPSULE BY MOUTH 4 TIMES DAILY FOR 14 DAYS 02/04 completed Not Available Not Available Not Available ergocalcife rol (vitamin D2) 1,250 mcg (50,000 unit) capsule TAKE 1 CAPSULE BY MOUTH ONCE A WEEK 02/04 completed Not Available Not Available Not Available ondansetron 4 mg disintegrat ing tablet DISSOLVE 1 TABLET IN MOUTH EVERY 6 HOURS NEEDED FOR NAUSEA AND FOR VOMITING . ALLOW TABLET TO DISSOLVE ON THE TONGUE 02/04 completed Not Available Not Available Not Available sertraline 50 mg tablet TAKE 1 TABLET BY MOUTH ONCE DAILY active Not Available Not Available No t Available Clomid 50 mg tablet TAKE 1 TABLET BY MOUTH ONCE DAILY 02/04 completed Not Available Not Available Not Available phentermine 37.5 mg capsule TAKE 1 CAPSULE BY MOUTH ONCE DAILY; MUST ADMINISTE R 30 MINUTES BEFORE OR 1-2 HOURS AFTER BREAKFAST 02/04 completed Not Available Not Available Not Available progesteron e micronized 100 mg capsule TAKE 1 CAPSULE BY MOUTH TWICE DAILY 02/04 completed Not Available Not Available Not Available sertraline 02/04 completed Not Available Not Available Not Available active Not Available Not Avai lable Not Available Vitals Date Recorded Body height Body mass index (BMI) Body weight Systolic And Diastolic Provider Name and Address Organization Details Last Updated DateTime 02/04/2025 170.18 cm 53.7 kg/m2 306298.18 g 125/79 mm[Hg] Clarissa Jewell [facility] 02/04/2025 15:41:17 Date Recorded Body height Body mass index (BMI) Body weight Systolic And Diastolic Provider Name and Address Organization Details Last Updated DateTime 03/09/2025 170.18 cm 54.3 kg/m2 700254.55 g 132/83 mm[Hg] Clarissachristiane Jewell [facility] 03/09/2025 12:20:45 Social History Question Answer Notes LastModified by Organizat ion Details LastModified Time Do You Have An Advance Directive? No Information n ot available 02/04/2025 Are You Blind Or Do You Have Difficulty Seeing? No Information not available 02/04/2025 What Is Your Level Of Caffeine Consumption? Moderate Information not available 02/04/2025 How Much Tobacco Do You Chew? None Information not available 02/04/2025 In The 14 Days Before Symptom Onset, Have You Had Close Contact With A Laboratory-confirme d COVID-19 While That Case Was Ill? No Information n ot available 02/04/2025 In The 14 Days Before Symptom Onset, Have You Had Close Contact With A Person Who Is Under Investigation For COVID-19 While That Person Was Ill? No Information not available 02/04/2025 Have You Been To An Area Known To Be High Risk For COVID-19? No Information not available 02/04/2025 Are You Deaf Or Do You Have Serious Difficulty Hearing? No Information not available 02/04/2025 What Type Of Diet Are You Following? REGULAR Information n ot available 02/04/2025 What Is The Highest Grade Or Level Of School You Have Completed Or The Highest Degree You Have Received? [id number] Information not available 02/04/2025 Are There Any Guns Present In Your Home? No Information not available 02/04/2025 Do You Use Protection During Sex? No Information not available 02/04/2025 Do You Use Your Seat Belt Or Car Seat Routinely? Yes Information not available 02/04/2025 Do You Have Smoke And Carbon Monoxide Detectors In Your Home? Yes Information not available 02/04/2025 How Much Tobacco Do You Smoke? No Information not available 02/04/2025 Do You Use Sunscreen Routinely? No Information not available 02/04/2025 Have You Used IV Drugs? No Information not available 02/04/2025 Sex: Unknown Functional Status Question Answer Note LastModified by Organizat ion Details LastModified Time Do you use any illicit or recreational drugs? Yes Information not available 02/04/2025 What is your level of alcohol consumption? None Information not available 02/04/2025 Are you able to walk? 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 Occasional Information not available 02/04/2025 Mental Status Question Answer Note LastModified by Organization D etails LastModified Time Do you feel stressed (tense, restless, nervous, or anxious, or unable to sleep at night)? [id number] Information not available 02/04/2025 Family History Relationship Description Onset Age of this Age Resolved Age Notes LastModified by Organization Details LastModified Time Mother Anxiety disorder Not available 2024 15:41:24 Mother Blood coagulation disorder Not available 2024 15:41:24 Sister Anxiety disorder Not available 2024 15:41:24 Sister Depressive disorder Not available 2024 15:41:24 Sister Mental disorder Not available 2024 15:41:24 Father Anxiety disorder Not available 2024 15:41:24 Father Depressive disorder Not available 2024 15:41:24 Father Mental disorder Not available 2024 15:41:24 Medical History Condition Response Anxiety Disorder Y Allergies (Food, seasonal, environmental ) Y Headaches Y Polycystic ovary syndrome Y Depression/ depression Y Gynecological History Statement/Question Response Abnormal Pap N Flow Moderate Date of LMP 10/23/2024 On BCP's at Conception? N N Was last menstrual period normal Y STIs/STDs N HPV Vaccine N Duration of Flow (days) 5 Current Control Method Age at First Child 28 Are cycles usually normal Y Frequency of Cycle (Q days) 30 Sexually Active? Y Menses Monthly Y Age of first menstrual cycle 12 Date of Last Pap Smear 12/10/2024 Sexual Problems? N LMP Definite N Obstetrics History GPAL:G 3 P 1 0 1 1 Type Value Full Term 1 Spontaneous 1 Living 1 Total 3 Past Encounters Encounter ID Performer Location Encounter Start Date Encounter Closed Date Diagnosis/Indication Diagnosis SNOMED-CT Code Diagnosis ICD10 Code Diagnosis Note [id number] Gregory Monge MD [place] [address] [address] 02/04/2025 15:10:21 02/04/2025 16:25:08 care status 140175813 Z34.82 [id number] Gregory Monge MD [place] [address],[place] [address] 02/15/2025 17:28:17 02/15/2025 17:53:37 Maternal obesity complicating , childbirth and the puerperium, antepartum 8182461008 07 O99.210 Z3A.16 [id number] Gregory Monge MD [place] [address],[place] [address] 03/09/2025 10:26:05 03/09/2025 11:47:54 screening for malformation 305605531 Z36.3 Z3A.19 [id number] Gregory Monge MD [place] [address],[place] [address] 03/09/2025 11:23:34 03/09/2025 13:51:35 Thyroid hormone tests outside reference range 540133419 R79.89 care status 24 5983914 Z34.82 Health Concerns Section Related Observation LastModified by Organization Detai ls LastModified Time None Recorded Concern Status LastModified by Organization Details LastModified Time None Recorded Advance Directives Directive N: Payers Encounter Date Sequence Insurance Name Policy Number Policy Lord Covered Member ID Lord Member ID Guarantor Name 02/04/2025 1 [facility] [id number] [facility] [id number] [facility] 02/15/2025 1 [facility] [id number] [place] [id number] [facility] 03/09/2025 1 [facility] [id number] [employer] [place] [id number] [employer] [place] 03/09/2025 1 [facility] [id number] Sun[employer] [place] [id number] [facility] OBGyn Episode Ob Episode Information Episode Created Date Number of Fetuses Patient Bloodtype Patient rh Status Prepregnancy Weight lbs Domestic Partner Domestic Partner Phone Father Name College And Career Counselor Status 02/05/20 25 1 CLOSED Fetus Data First Name Last Name Admitted to NICU Weight (g) Sex Living Outcome Pediatric Complications Fetus ID Race Codes Race Delivery Type 3883.65 [id number] M Full Term [id number] Vaginal Delivery Palmer Calculation Initial Palmer Date Initial Exam Date Initial Exam Provider Initial Ultrasound Date Last Menstrual Period Date Ultra Sound Weeks Gestation 0 Eighteen To Twenty Week Palmer Update Ultra Sound Date Fundal Height At Umbil Quickening Date Ultra Sound Latest Weeks Gestation Final Palmer Confirmed By Final Palmer Confirmed Date Final Palmer Date Ultra Sound Latest Days Gestation 0 0 Menstrual History Last Menstrual Date Menses Monthly On Bcp Conception Prior Menses Frequency Hcg Plus Date Menarche Onset Age Delivery Information Delivery Date Delivery Type Labor Anesthesia Weeks Gestation Incision Type Labor Labor Length Hrs Delivered By Post Complications Tubal Sterilization Discharge Date Comments 3 39.3 Discharge Information Feeding Method Contraceptive Method Maternal HG B and HCT Levels Ob Episode Information Episode Created Date Number of Fetuses Patient Bloodtype Patient rh Status Prepregnancy Weight lbs Domestic Partner Domestic Partner Phone Father Name College And Career Counselor Status 02/05/20 25 1 CLOSED Fetus Data First Name Last Name Admitted to NICU Weight (g) Sex Living Outcome Pediatric Complications Fetus ID Race Codes Race Delivery Type , Spontane ous [id number] Palmer Calculation Initial Palmer Date Initial Exam Date Initial Exam Provider Initial Ultrasound Date Last Menstrual Period Date Ultra Sound Weeks Gestation 0 Eighteen To Twenty Week Palmer Update Ultra Sound Date Fundal Height At Umbil Quickening Date Ultra Sound Latest Weeks Gestation Final Palmer Confirmed By Final Palmer Confirmed Date Final Palmer Date Ultra Sound Latest Days Gestation 0 0 Menstrual History Last Menstrual Date Menses Monthly On Bcp Conception Prior Menses Frequency Hcg Plus Date Menarche Onset Age Delivery Information Delivery Date Delivery Type Labor Anesthesia Weeks Gestation Incision Type Labor Labor Length Hrs Delivered By Post Complications Tubal Sterilization Discharge Date Comments 4 Discharge Information Feeding Method Contraceptive Method Maternal HG B and HCT Levels Ob Episode Information Episode Created Date Number of Fetuses Patient Bloodtype Patient rh Status Prepregnancy Weight lbs Domestic Partner Domestic Partner Phone Father Name College And Career Counselor Status 02/05/20 1 A Positive OPEN Fetus Data First Name Last Name Admitted to NICU Weight (g) Sex Living Outcome Pediatric Complications Fetus ID Race Codes Race Delivery Type [id number] Problems Problem Notes Problem Name Start Date End Date Resolution Snomed Code Not e Mixed anxiety and depressive disorder 02/04/2025 702010799 treated with 50mg sertraline Migraine without aura, not refractory 02/04/2025 516429953 Ramon-Danlos syndrome 02/04/2025 [id number] TO REFER TO [facility] FOR POTENTIAL CONCERNS, CARDIAC OR OTHERWISEReferral faxed to [facility] 03/11/25 Serum thyroid stimulating hormone level outside reference range 02/04/2025 608743460 consider jaison ating TSH of 3.2, could repeat TSH Placenta circumvallata 03/09/2025 [id number] 32wk growth us Palmer Calculation Initial Palmer Date Initial Exam Date Initial Exam Provider Initial Ultrasound Date Last Menstrual Period Date Ultra Sound Weeks Gestation 02/04/2025 12/21/2024 10/23/2024 8 Eighteen To Twenty Week Palmer Update Ultra Sound Date Fundal Height At Umbil Quickening Date Ultra Sound Latest Weeks Gestation Final Palmer Confirmed By Final Palmer Confirmed Date Final Palmer Date Ultra Sound Latest Days Gestation 03/09/20 25 19 [email or web address] 02/04/2025 07/30/20 25 2 Pre- Flowsheet Flowsheet Date 02/04/2025 Gaytan Score Blood Edema Fundus Height Fundus Units Glucose Ketones Leukocytes Nitrite Labor Signs Protein Cervic Dilation Cervic Effacement Cervic Station Type Weight in lbs Pre/Post Dialysis Refused Weight 343.153155702492 BP Diastolic BP Location Tested BP Systolic BP Type 79 L arm 125 sitting Fetus Heart Rate Present A 145 Fetus Movement Comments this patient is a 29-year-ol d multiarous female at 14weeks' gestation who presents for initial care. She has a history of term vaginal births. Her medical, surgical, obstetric history is unremarkable. She is vaccinated. She was given precautions recommendations for . We talked about vaccines in . Talked about care in detail. She is having genetic testing. She had a normal 12 week ultrasound. To begin routine care. Flowsheet Date 02/15/2025 Gaytan Score Blood Edema Fundus Height Fundus Units Glucose Ketones Leukocytes Nitrite Labor Signs Protein Cervic Dilation Cervic Effacement Cervic Station Type Weight in lbs Pre/Post Dialysis Refused BP Diastolic BP Location Tested BP Systolic BP Type Fetus Heart Rate Present Fetus Movement Comments Flowsheet Date 03/09/2025 Gaytan Score Blood Edema Fundus Height Fundus Units Glucose Ketones Leukocytes Nitrite Labor Signs Protein Cervic Dilation Cervic Effacement Cervic Station Type Weight in lbs Pre/Post Dialysis Refused BP Diastolic BP Location Tested BP Systolic BP Type Fetus Heart Rate Present Fetus Movement Comments Flowsheet Date 03/09/2025 Gaytan Score Blood Edema Fundus Height Fundus Units Glucose Ketones Leukocytes Nitrite Labor Signs Protein Cervic Dilation Cervic Effacement Cervic Station Type Weight in lbs Pre/Post Dialysis Refused Weight 347.642854711701 BP Diastolic BP Location Tested BP Systolic BP Type 83 L arm 132 sitting Fetus Heart Rate Present A 143 Fetus Movement A Yes Comments discussed Ramon-Danlos. To send the Maternal- Medicine to rule out any cardiac concerns associated with Ramon-Danlos. Patient is uncertain her subtype. Otherwise, no complaints, no problems, routine care, no contractions, no vaginal bleeding, no loss of fluid, no cramping Menstrual History Last Menstrual Date Menses Monthly On Bcp Conception Prior Menses Frequency Hcg Plus Date Menarche Onset Age 0110/23/2024 true Delivery Information Delivery Date Delivery Type Labor Anesthesia Weeks Gestation Incision Type Labor Labor Length Hrs Delivered By Post Complications Tubal Sterilization Discharge Date Comments Discharge Information Feeding Method Contraceptive Method Maternal HG B and HCT Levels
--- OUTSIDE RECORDS SUMMARY | 2025-03-15 18:54 | XMS_ITS ---
Author Organization Unknown Allergies, Adverse Reactions, Alerts Substance Reaction Status Noinformation - Inactive Medications Medication Instructions Effective Dates (start - sto p) Status NoInformation Completed Problems Problem Status Start date Recorded date E66.01: Morbid (severe) obes ity due to excess calories Inactive E28.2: Polycystic ovarian syndrome Inactive Problem Inactive Procedures Procedure Date NoInformation Results No information Plan of Treatment Encounters Encounter Type Performer Location Encounter Date Encoun ter Notes Nourish Team - 2024-11-09 no notes Patient Care team information Name Category Status Period Participants - Episode of care-focused care team Proposed 15-12-16 - - - Proposed period not known - - Episode of care-focused care team Proposed 14-11-22 - Notes Author - Date Note - no notes - No Information - no notes - no notes - no notes - no notes
--- NOTE | 2025-03-15 19:20 | PC.NURSE ---
Pt here with c/o of high blood pressure @ home, called provider and provider told her to come in. Pt stated since saturday she felt a little bit off, headache, floater/cross eyed vision and fatigue. Pt stated no relief from Tylenol, pt last took it yesterday.
[2025-03-15 19:22] VITALS: BP 128/109; PULSE 83
--- NOTE | 2025-03-15 19:30 | PC.NURSE ---
FHR doppled @ 145-155 for 1 minute
[2025-03-15 19:31] VITALS: BP 118/56; PULSE 99
[2025-03-15 19:32] LABS: Basophils Absolute Auto 0.1 K/mm3 (0.0-0.1); Basophils Percent Auto 0.3 % (0.2-1.2); Eosinophils Absolute Auto 0.2 K/mm3 (0-0.3); Eosinophils Percent Auto 1.1 % (0-4.4); Hematocrit 42.2 % (37.0-47.0); Hemoglobin 14.1 g/dL (12.0-15.0); Immature Granulocyte Percent A 0.6 % (0-0.5); Lymphocytes Absolute Auto 3.89 K/mm3 (0.9-3.2); Lymphocytes Percent Auto 24.4 % (18.3-44.2); Mean Corpuscular HGB Conc 33.4 g/dl (32-36); Mean Corpuscular Hemoglobin 29.7 pg (26-34); Mean Platelet Volume 9.4 fl (7.4-10.4); Monocytes Absolute Auto 0.8 K/mm3 (0.1-0.6); Monocytes Percent Auto 4.7 % (2.6-8.5); Neutrophils Percent Auto 68.9 % (45.5-73.1); Platelet Count Result 349 k/mm3 (150-375); Red Blood Count 4.74 M/mm3 (4.2-5.4); Red Cell Distribution Width 13.3 % (11.5-14.5); White Blood Count 15.9 K/mm3 (4.5-10.0)
[2025-03-15 19:43] LABS: Add Urine Microscopic? YES; Appearance Urine Turbid (Clear); Bacteria Urine 4+ /hpf; Bilirubin Urine Negative (Negative); Blood Urine Negative (Negative); Color Urine Yellow (Yellow); Glucose Urine UA Negative (Negative); Ketones Urine Trace mg/dL (Negative); Leukocyte Esterase Ur 2+ LEU/UL (Negative); Need Manual Microscopic Reviewed; Nitrate Urine Negative (Negative); Protein Urine 1+ mg/dL (Negative); Squamous Epithelial Cell Urine Many /hpf (Few); WBC Urine 21-50 /hpf (0-3); pH Urine 5.5 (5.0-9.0)
[2025-03-15 19:46] VITALS: BP 111/71; PULSE 66
[2025-03-15] MEDS: ACETAMINOPHEN 500 MG TABLET 1000 MG PO (19:48)
[2025-03-15 20:01] VITALS: BP 129/111; PULSE 78
[2025-03-15 20:05] LABS: Alanine Aminotransferase 12 U/L (6-35); Albumin Level 4.1 g/dL (3.5-5.1); Alkaline Phosphatase 61 U/L (38-126); Anion Gap 7 mmol/L (4-12); Aspartate Amino Transferase 21 U/L (14-36); Bilirubin,Total 0.3 mg/dL (0.2-1.3); Blood Urea Nitrogen 11 mg/dL (7-17); Carbon Dioxide 24 mmol/L (22-30); Chloride 105 mmol/L (98-107); Creatinine Urine 204.4 mg/dL; Estimated Glomerular Filt Rate > 60; Glucose 99 mg/dL (65-110); Potassium 3.6 mmol/L (3.4-5.0); Sodium 136 mmol/L (137-145); Total Protein Urine Random 8 mg/dL; Ur Ttl Prot Creatinine Ratio 0.04 mg/mg (0-0.20); Uric Acid 4.5 mg/dL (2.5-7.5)
[2025-03-15 20:10] VITALS: BP 111/70; PULSE 78
--- NOTE | 2025-03-15 20:15 | PC.NURSE ---
Call placed to Dr. Monge reported pt c/os, vitals, and labs. Order for macrobid 100 mg twice a day for seven days. Discharge pt home.
[2025-03-15 20:16] VITALS: BP 89/60; PULSE 80
--- NOTE | 2025-03-15 20:29 | PC.NURSE ---
Pt discharged home undelivered in stable condition per order from Dr. Monge. Discharge instructions explained to pt, pt stated understanding, all questions and concerns answered. Pt antibiotic sent to preferred pharmacy. Pt ambulated out of department, with all belongings.
== END 2025-03-15 20:30 | disposition home or self-care (01) ==
LOC: ANHOBOP 18:53 → ANHOBPP 18:55
PROVIDERS: Visit Provider Obstetrics & Gynecology
DX: O13.9 Gestational [pregnancy-induced] hypertension without significant proteinuria, unspecified trimester (principal); Z3A.00 Weeks of gestation of pregnancy not specified
CPT/HCPCS: 36415; 80053; 81001; 82570; 84156; 84550; 85025; A9270

== ENCOUNTER 2025-06-09 12:10 | Outpatient (RCR) | payer OTHER, SELFPAY ==
[2025-06-09 12:31] VITALS: BP 129/67; PULSE 81
[2025-06-09 12:46] VITALS: BP 119/61; PULSE 79
[2025-06-09 12:53] VITALS: BP 119/61; PULSE 70
== END 2025-07-31 09:29 | disposition other institution (70) ==
LOC: ANHOBOP 12:10
PROVIDERS: Visit Provider Obstetrics & Gynecology
DX: O36.8130 Decreased fetal movements, third trimester, not applicable or unspecified (principal); Z3A.32 32 weeks gestation of pregnancy
CPT/HCPCS: 59025

== ENCOUNTER 2025-06-25 13:15 | Observation (INO) | payer OTHER, SELFPAY ==
--- OUTSIDE RECORDS SUMMARY | 2024-04-04 16:30 | XMS_ITS ---
Author Organization [facility] [place] ([address]) Address [address] [facility] [address] [place] [address] Care Team Providers Care Quality Improvement Manager Name Role Phone Shama MEHTA, Leeann Primary Care Provider Unavailable LorraineBhumika Unavailable [phone] ZZ-Migration, Provider Unavailable Unavailab le REASON FOR VISIT [facility] Conversion Encounter Medications Medication SIG (Take, Route, [...] Active Encounters Encounter Location Date Provider Diagnosis [address] [place] [address] 04/04/2024 Provider Violeta Allergic rhinitis due to [...] check* Progress Notes * Sunshine FELIZ DDOB:1994 (29 yo F)Acc No.[id number]:04/04/2024 Patient: Alexus Sunshine GRIFFITH Provider: Wolf Love :1995 A ge:28 Y S ex:Female Date:04/04/2024 Address:[address] [place] [address] , [facility] Pcp:Taylor Ramírez Subjective: * Chief Complaints: * [...] *Please review and pick correct strength-formulation from [employer] options. If intended option is not shown, discontinue and re-order from Quick Search* Objective: * Vitals: Assessment: * Assessment: 1. A llergic rhinitis due to unspecified cause - 477.9 (Primary) 2 . A llergic rhinitis due to allergen - 477.8 (Primary) Plan: * Treatment: 2. A llergic rhinitis due to unspecified cause Continue SIT (TRADITIONAL) SEE RECORD, VARIABLE, PER SCHEDULE, SC, PER SCHEDULE, TO BE DETERMINED, Notes to Pharmacist: *Please review for potential replacement for e-prescription and drug interaction check*. * Billing Information: * Visit Code: * Procedure Codes: * Electronic signature of Huong ANTHONY-Migration on 06/25/2025 at 01:31 PM CDT Sign off status: Pending * Provider: Wolf harley Migration Date: 04/04/2024 Generated for Sara awan/Josselyn/Clifton on: 06/25/2025 01:31 PM CDT
[2025-06-25] VITALS (17 sets, daily range): BP systolic 96–115; BP diastolic 55–75; PULSE 75–98; TEMP 36.2; O2SAT 87–100; BMI 54.8
--- OUTSIDE RECORDS SUMMARY | 2025-06-25 13:32 | XMS_ITS | Clinical Summary ---
Author Organization [facility] [employer] Address [address] [place] [address] Care Team Providers Care Psychiatric Tech Name Role Phone Meli Bustamante MD Primary Care Provider Source Comments [facility],non-owned Affiliates and Associated Physician Practices is amultiple site organization consisting of ambulatory clinics and hospital sitesin [place], [place], [place] and [place]. This disclosure is being madepursuant to the Care Everywhere program and may not contain all information available regarding this patient. Last updated 18.[facility] Allergies No known active allergies Medications * Be aware that medications may not be up to date on this document. Alwaysverify current medications with the patient. vitamin D, ergocalciferol, (Drisdol) 1.25 MG (41570 UT) capsule Take 1 (one) capsule by mouth every 7 days 8 capsule 12/11/2024 Active Vit-Fe Fumarate-FA ( vitamin) 28-0.8 MG tablet Take 1 (one) tablet by mouth once daily Active ondansetron, disintegrating, (Zofran ODT) 4 MG tablet Take 1 (one) tablet by mouth every 6 hours as needed for Nausea/Vomiti ng Allow tablet to dissolve on the tongue 30 tablet 01/19/2025 Active sertraline (Zoloft) 50 MG tablet Take 1 tablet by mouth once daily 90 tablet 04/27/2025 Active Active Problems Problem Noted Date Diagnosed Date Normal in third trimester 12/31/2022 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 , twins, antepartum 05/15/2022 Subchorionic hemorrhage of placenta in first tri mester 05/15/2022 Patellofemoral syndrome of both knees 06/16/2018 Estimated Date of Delivery Comme nts Yes 07/30/2025 Based on last me nstrual period of 10/23/2024 Encounters Date Type Department Care Team Description 05/28/2025 1:40 PM CDT - 05/28/2025 11:59 PM CDT Hospital Encounter [facility] & [facility] [address] [place] [id number] Donavan Crawford MD Discharge Disposition: Home or Self Care 04/27/2025 10:12 AM CDT - 04/27/2025 11:59 PM CDT Hospital Encounter [facility] Care [address] [place] [id number] Krzysztof Crawford MD Discharge Disposition: Home or Self Care 04/27/2025 Refill [facility] - [facility] [address] [place] [address], [address] [place] [address] Daniel Cochran MD Refill Request 03/30/2025 9:33 AM CDT - 03/30/2025 11:59 PM CDT Hospital Encounter [facility] [address] [place] [id number] Uilses Moseley MD Discharge Disposition: Home or Self Care 03/30/2025 9:32 AM CDT Hospital Encounter [facility] [address] [place] [phone] Ulises Moseley MD Discharge Disposition: Home or Self Care 03/30/2025 Orders Only [facility] [address] [place] [phone] Ivon Alejandro RN 03/30/2025 Telephone [facility] - Rheumatology [address] [place] [address], [address] [place] [address] [facility] Medical Referral from Last 3 Months Immunizations Immunization Administration [...] 08/25/2002, 8,01/13/1997,11/04 TDAP (7yrs+) 11/12/2022,12/05/2007 VARICELLA 08/04/1997 Family History Medical History Relation Name Comments Hypertension Father Relation Name Status Comments Father Alive Mother Alive Social History Tobacco Use Types Packs/Day Years [...] Recorded Patient Health Questionnaire-2 Score 1 12/15/2024 [facility] of Occupat ional Health - Occupational Stress [...] place to sleep or slept in a long-term (including now)? No 12/31/2022 Kenney Depression Scale Answer Date Recorded Kenney Depression Scale Total 9 03/30/2025 The thought of harming myself has occurred to me . Never 03/30/2025 Estimated Date of Delivery Comme nts Yes 07/30/2025 Based on last me nstrual period of 10/23/2024 Sex and Gender Information Value Date Recorded Sex Assigned at Female 08/15/2021 8:25 AM CDT Legal Sex Female 11:29 AM CDT Gender Identity Female 08/15/2021 8:25 AM CDT Sexual Orientation Not on file Last Filed Vital Signs Vital Sign Reading Time Taken Comments Blood Pressure 120/72 03/30/2025 11:10 AM CDT Pulse 78 03/30/2025 10:30 AM CDT Temperature 36.7 C (98.1 F) 01/02/2023 3:58 PM CDT Respiratory Rate 18 01/02/2023 3:58 PM CDT Oxygen Saturation 100% 01/02/2023 3:58 PM CDT Inhaled Oxygen Concentration - - Weight 156.9 kg (346 lb) 03/30/2025 10:30 AM CDT Height 170.2 cm (5' 7) 03/30/2025 10:30 AM CDT Body Mass Index 54.19 03/30/2025 10:30 AM CDT Plan of Treatment Upcoming Encounters Date Type Department Care Team (Late st Contact Info) Description 06/29/2025 1:00 PM CDT Hospital Encounter [facility] Maternal & Care [address] [place] [address] Health Maintenance Due Date Last Done Comments HPV VACCINE (3 - 2-dose series) 06/04/2008 02/25/2008, 12/05/2007 HEPATITIS C SCREENING 07/16/2014 OB-TDAP CURRENT 04/30/2025 11/12/2022, COVID-19 VACCINE ( season) 2025 04/01/2021, 02/26/2021 INFLUENZA VACCINE (#1) 2025 11/30/2022, 2018 Respiratory Syncytial Virus (RSV) Vaccine Pt: or over 60 yrs (1 - Risk 1-dose series) 06/21/2025 OB-GROUP B STREP SCREEN 06/25/2025 11/30/2022, 01/27 PAP SMEAR 12/10/2027 12/10/2024, 06/21, [...] to complete this topic DEPRESSION SCREENING Completed 03/30/2025, 12/10/2024, 02/21/2024, Additional history exists HIV SCREENING Completed 05/11/2025, 11/22, 05/11/2022 OB-ONE HOUR GLUCOSE Completed 05/11/2025, 12/12/202 2 MENINGOCOCCAL (Group B) VACCINE SHARED DECISION-MAKING Aged Out No longer eligible based on patient's age to complete this topic PNEUMOCOCCAL VACCINE Aged Out No long er eligible based on patient's age to complete this topic Procedures Procedure Name Priority Date/Time Associated Diagnosis Comments SONOGRAM - COMPLETE Routine 05/28/2025 1 :57 PM CDT Ramon-Danlos syndrome (HCC) Obesity in (HCC) 30 weeks gestation of (HCC) Encounter for ultrasound to assess growth (HCC) SONOGRAM - COMPLETE Routine 04/27/2025 1 0:27 AM CDT Ramon-Danlos syndrome (HCC) Obesity in (HCC) 26 weeks gestation of (HCC) Encounter for follow-up ultrasound of anatomy ([facility]) SONOGRAM - COMPLETE Routine 03/30/2025 9 :34 AM CDT Ramon-Danlos disease (HCC) Obesity in (HCC) Encounter for anatomic survey ([facility]) 23 weeks gestation of ([facility]) PAP IG LB CT+NG+TV RFLX HPV ASCU Routine 12/10/2024 3:52 PM MEDICAL INSURANCE BILLER 7 weeks gestation of HIV-1 HIV-2 ANTIBODY + HIV P24 AG PANEL Routine 12/10/2024 3:34 PM MEDICAL INSURANCE BILLER 7 weeks gestation of CULTURE STREP B Routine 11/30/2022 9:56 AM MEDICAL INSURANCE BILLER 35 weeks gestation of GLUCOSE CHALLENGE Routine 10/01/2022 10: 00 AM MEDICAL INSURANCE BILLER 23 weeks gestation of from Last 3 Months or Most Recently Relevant to Health Maintenance Results * Sonogram - Complete (05/28/2025 1:57 PM CDT) Only the most recent of3 resultswithin the time period is included. Linked Results Indication ======== Screening Follow-Up Obesity complicating , Class 3 - BMI of 40.0 or greater Ramon Danlos syndrome History ====== OB History 3. Para 1 [id number] 1. live 2022. Gest. age 39 w + 3 d. Weight 3,909 g. Sex of child: male. Details: 2. miscarriage 2023 Lab Tests Test Date Result NIPT Low risk, Male Maternal Assessment Physical Exam Height 170 cm, 5 ft 7 in. Weight 163 kg, 360 lb. Initial weight 157 kg, 347 lb. BMI 56.38 kg/m . Initial BMI 54.35 kg/m . Weight gain 6 kg, 13 lb Method ====== Transabdominal ultrasound. View: Suboptimal view: limited by position ========= Eason . Number of fetuses: 1 Dating ====== Date Details Gest. age ANNE LMP 10/23/2024 31 w + 0 d 07/30/2025 Stated ANNE 31 w + 0 d 07/30/2025 Previous U/S 12/21/2024 CRL 15.9 mm 30 w + 4 d 08/02/2025 U/S 05/28/2025 based upon AC, BPD, Femur, HC 32 w + 3 d 2025 Assigned dating based on the LMP, selected on 03/30/2025 31 w + 0 d 07/30/2025 General Evaluation Cardiac activity present. FHR 146 bpm. Presentation: cephalic Placenta: Placental site: anterior Umbilical cord: Cord vessels: 3 vessel cord. Insertion site: normal insertion Amniotic fluid: Amount of AF: normal. MVP 3.7 cm. PREMA 11.9 cm. Q1 1.9 cm, Q2 3.4 cm, Q3 2.9 cm, Q4 3.7 cm Biometry BPD 81.0 mm 32w 4d 83% Hadlock HC 305.5 mm 34w 0d 90% Hadlock AC 270.2 mm 31w 1d 50% Hadlock Femur 61.3 mm 31w 6d 59% Hadlock Humerus 52.4 mm 30w 4d 40% Prabhjot HC / AC 1.13 Weight Calculation: EFW 1,826 g 63% Hadlock EFW (lb,oz) 4 lb 0 oz EFW by Hadlock ([id number]) appropriate Growth Overview Exam date GA BPD (mm) HC (mm) AC (mm) FL (mm) HL (mm) EFW (g) 03/30/2025 22w 4d 50.6 8% 208.6 52% 195.2 88% 38.4 30% 36.5 47% 575 74% 04/27/2025 26w 4d 64.3 21% 262.1 85% 222.4 44% 50.4 51% 44.7 43% 1004 53% 05/28/2025 31w 0d 81 83% 305.5 90% 270.2 50% 61.3 59% 52.4 40% 1826 63% Anatomy The following structures appear normal: Abdomen Stomach. Kidneys. Bladder. The following structures could not be adequately visualized: Heart / Thorax Aortic arch view. The following structures were documented previously: Head / Neck Cranium. Lateral ventricles. Choroid plexus. Midline falx. Cavum septi pellucidi. Cerebellum. Cisterna magna. Thalami. Nuchal fold. Face Lips. Profile. Nose. Nasal bone. Orbits. Heart / Thorax 4-chamber view. RVOT view. LVOT view. 3-vessel view. 6-ulkeif-boqwrqm view. Situs. Bicaval view. Ductal arch view. Great vessels. Right lung. Left lung. Diaphragm. Abdomen Cord insertion. Bowel. Genitals. Spine Cervical spine. Thoracic spine. Lumbar spine. Sacral spine. Extremities / Skeleton Arms. Hands. Legs. Feet. sex: male. 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 [facility] Anatomical Region Laterality Modality Other 05/28/2025 1:57 PM CDT R Romel Monge MD [facility] ORDERABLES Edited Result - Final * PAP IG LB CT+NG+TV RFLX HPV ASCU (12/10/2024 3:52 PM MEDICAL INSURANCE BILLER) Diagnosis Comment [facility] ACCOUNT BILL Comment:NEGATIVE FOR [...] UTERINE CERVIX / Unknown 12/10/2024 3:52 PM MEDICAL INSURANCE BILLER 12/10/2024 Comment:Cervix Release to pa t Narrative [facility] ACCOUNT BILL - 12/14/2024 5:09 PM MEDICAL INSURANCE BILLER Performed at: - [facility] [address], [place] [id number] Certified [place] Administrator: Marianne Koehler MD, Phone: [phone] Performed at: - [facility] [address], [place] [id number] Certified [place] Administrator: Marianne Koehler MD, Phone: [phone] Specimen Comment: [id number] Specimen Comment: No. of containers..01 ThinPrep Vial Daniel Cochran MD LAB - PATHOLOGY/CYTOLOGY OR DERABLES Final Result Performing Organization Address City/[facility] Co de Phone Number [facility] ACCOUNT BILL [address] [place] [address] * HIV-1 HIV-2 ANTIBODY + HIV P24 AG PANEL (12/10/2024 3:34 PM MEDICAL INSURANCE BILLER) [facility] HIV Screen 4th Generation w Reflex Non Reactive Non Reactive [facility] ACCOUNT BILL Comment: HIV-1/HIV-2 antibodies and HIV-1 p24 antigen were NOT detected. There is no laboratory evidence of HIV infection. HIV Negative Blood BLOOD SPECIMEN / Unknown 12/10/2024 3:34 PM MEDICAL INSURANCE BILLER 12/10/2024 Narrative [facility] ACCOUNT BILL - 12/11/2024 7:09 AM MEDICAL INSURANCE BILLER Performed at: - [facility] [id number] Certified [place] Administrator: Kasi Powers PhD, Phone: [phone] Daniel Cochran MD LAB - CHEMISTRY ORDERABLES Final Result Performing Organization Address City/[facility]/ZIP Co de Phone Number [facility] ACCOUNT BILL [address] [place] [address] * (ABNORMAL) CULTURE STREP B (11/30/2022 9:56 AM MEDICAL INSURANCE BILLER) [facility] Strep Group B Culture Positive( A) Negative [facility] ACCOUNT BILL Comment: Centers for Disease Control and Prevention (CDC) and [place] [employer] of Obstetricians and Gynecologists (ACOG) guidelines [...] MISCELLANEOUS SAMPLES / Unknown 11/30/2022 9:56 AM MEDICAL INSURANCE BILLER 11/30/2022 Narrative Resulting Agency Comment Lab Testing performed at: [facility] [id number] Daniel Cochran MD LAB - MICROBIOLOGY ORDERABL ES Final Result Performing Organization Address City/[facility] Co de Phone Number [facility] ACCOUNT BILL [address] [place] [address] * GLUCOSE CHALLENGE (10/01/2022 10:00 AM MEDICAL INSURANCE BILLER) [facility] GTT 1Hr 115 70 - 139 mg/dL [facility] ACCOUNT BILL Comment: According to ADA, a glucose threshold of >139 mg/dL after 50-gram load identifies approximately 80% of women with gestational diabetes mellitus, while the sensitivity is further increased to approximately 90% by a threshold of >129 mg/dL. FASTING Blood BLOOD SPECIMEN / Unknown 10/01/2022 10:00 AM MEDICAL INSURANCE BILLER 10/01/2022 Narrative Resulting Agency Comment Lab Testing performed at: [facility] [id number] Daniel Cochran MD LAB - CHEMISTRY ORDERABLES Final Result Performing Organization Address City/[facility] Co de Phone Number [facility] ACCOUNT BILL [address] [place] [address] from Last 3 Months or Most Recently Relevant to Health Maintenance Insurance [facility] Advance Directives * Full Code (Latest Code Status on File) Date Activated Date Inactivated Comments 12/31/2022 6:16 AM 01/02/2023 9:06 PM * Full Code Date Activated Date Inactivated Comments 12/31/2022 6:02 AM 12/31/2022 6:16 AM Care Teams Psychiatric Tech Relationship Specialty Start Date End Date Meli Bustamante MD PCP - General Internal Medicine 06/16/18
--- OUTSIDE RECORDS SUMMARY | 2025-06-25 13:32 | XMS_ITS | Clinical Summary ---
Author Organization [facility] Address [facility] [place] [address] Care Team Providers Care Edge Glue Machine Tender Name Role Phone None, Provider MD Primary Care Provider Unavaila ble Allergies No known active allergies Medications Cetirizine HCl 10 MG Cap Active metFORMIN 1000 MG tablet Take 1,000 mg by mouth daily with breakfast. Active clomiPHENE Citrate 50 MG Tab Take 2 tablets by mouth daily. 02/23/2022 Active Active Problems Problem Noted Date Diagnosed Date Upper respiratory tract infection, unspecified t ype 04/02/2022 Fatigue 04/07/2018 Weight gain 04/07/2018 BMI 40.0-44.9, adult 09/06/2016 Obesity, Class III, BMI 40-49.9 (morbid obesity) 09/06/2016 Eczema 09/05/2016 Ganglion of wrist, unspecified laterality 2014 Overview (08/10/2019): Impression - [id number] Meli Bustamante: L WRIST Migraine 04/04/2015 Resolved Problems Problem Noted Date Diagnosed Date Resolved Date Encounter for preventive health examination 07/15/2014 07/01/2020 Immunizations Immunization Administration Dates Next Due DTaP (Daptacel) 08/25/2002, 8,03/23/1997,1996,1996 Fluzone 6 Months+ Quad (0.5 mL Prefilled Syringe) 08/10/2019 HPV4 (Gardasil) 02/25/2008,12/05/2007 Hepatitis B Pediatric 03/23/1997,1996,06/23 Hib (Generic) 01/20/1998, 7,01/13/1997,1996 MMR 07/25/2000,01/20/1998 Menactra 12/05/2007 Polio IPV (Ipol) 08/25/2002, 8,01/13/1997,1996 Tdap (Generic) 12/05/2007 Varicella Vaccine 08/04/1997 Family History Medical History Relation Comments Hypertension Father Heart Disease Maternal Grandmother Cancer Maternal Uncle thyroid Anemia Mother blood clots Mother Seizures Sister Relation Status Comments Father Maternal Grandmother Maternal Uncle Mother Sister Social History Tobacco Use Types Packs/Day Years Used Date Smoking Tobacco: Never Smokeless Tobacco: Never Tobacco Cessation:Counseling Given: No Alcohol Use Standard Drinks/Week Comments Not Currently 0 (1 standard drink = 0.6 oz pur e alcohol) AUDIT-C Answer Date Recorded Q1: How often do you have a drink containing alc ohol? Monthly or less 09/23/2020 Q2: How many drinks containi ng alcohol do you have on a typical day when you are drinking? 1 or 2 09/23/2020 Frequency of Binge Drinking Not on file 01/2020 Comments No Sex and Gender Information Value Date Recorded Sex Assigned at Not on file Legal Sex Female 7:50 PM CDT Gender Identity Not on file Sexual Orientation Not on file Last Filed Vital Signs Vital Sign Reading Time Taken Comments Blood Pressure 130/68 04/02/2022 8:30 AM CDT Pulse 122 04/02/2022 8:30 AM CDT Temperature 36.4 C (97.6 F) 04/02/2022 8:30 AM CDT Respiratory Rate 20 04/02/2022 8:30 AM CDT Oxygen Saturation 97% 04/02/2022 8:30 AM CDT Inhaled Oxygen Concentration - - Weight 150.1 kg (331 lb) 04/02/2022 8:30 AM CDT Height 170.2 cm (5' 7) 04/02/2022 8:30 AM CDT Body Mass Index 51.84 04/02/2022 8:30 AM CDT Plan of Treatment Health Maintenance Due Date Last Done Comments Cervical Cancer Screening Pap Smear (Age 21 to 29) Every 3 Years 1996 Cervical Cancer Screening 1996 Annual Physical 1999 HPV Vaccines (3 - 2-dose series) 06/04/2008 02/25/2008, 12/05/2007 Hepatitis C 2014 DTaP, Tdap and Td Vaccines (7 - Td or Tdap) 12/05/2017 12/05/2007, 08/25/2002, 01/20/1998, Additional history exists COVID-19 Vaccine ( season) 2025 04/01/2021, 02/26/2021 Hepatitis B Vaccines Completed 03/23/1997, 1996, 1996 Meningococcal Vaccine Aged Out 12/05/2007 No lebron veronique eligible based on patient's age to complete this topic Meningococcal B Vaccine Aged Out No l onger eligible based on patient's age to complete this topic Pneumococcal Vaccine: Pediatrics (0 to 5 Years) and At-Risk Patients (6 to 49 Years) Aged Out No longer eligible based on patient's age to complete this topic RSV Immunizations Under 20 Months Aged Out No longer eligible based on patient's age to complete this topic Insurance [employer] [facility] Care Teams Edge Glue Machine Tender Relationship Specialty Start Date End Date None, Provider, MD PCP - General UNKNOWN PHYSICIAN SPECIALTY 09/19/23
--- OUTSIDE RECORDS SUMMARY | 2025-06-25 13:33 | XMS_ITS | Patient Health Record ---
Author Organization [facility] ([address]) Address [address] [facility] [address] [place] [address] Care Team Providers Care Bottom Cager Name Role Phone Shama MEHTA, Leeann Primary Care Provider Unavailable Lorraine Bhumika Unavailable [phone] Reason For Referral No Information Medications Medication SIG (Take, Route, Frequency, Duration) Notes Start Date End Date Status FIORICET 325 mg-50 mg-40 mg 2 tab(s) orally every 4 hours; Duration: 0 Active Fioricet 325 MG-50 MG-40 MG 2 TAB(S) ORALLY EVERY 4 HOURS; Duration: 0 *Please review and pick correct strength-formulat ion from [employer] options. If intended option is not shown, discontinue and re-order from Quick Search* Active Ketorolac Tromethamine 10 MG 3 tab(s) orally once a day; Duration: 5 day(s) Active ZyrTEC Allergy 10 MG 1 tab(s) orally once a day; Duration: 30 day(s) Active CYMBALTA 30 mg 1 cap(s) orally once a day; Duration: 30 day(s) Active NASAL WASHES N/A DIRECTED INTRANASALLY NEEDED; Duration: 30 *Please review for potential replacement for e-prescription and drug interaction check* Active SIT (TRADITIONAL) VARIABLE PER SCHEDULE SC PER SCHEDULE; Duration: TO BE DETERMINED *Please review for potential replacement for e-prescription and drug interaction check* 06/09/2014 Active FLONASE 50 mcg/inh 2 spray(s) intranasally once a day; Duration: 30 day(s) Active EpiPen 2-Addison 0.3 MG/0.3ML 0.3 mg intramuscularly once; Duration: 1 dose(s) Active KETOROLAC 10 mg 3 tab(s) orally once a day; Duration: 5 day(s) Active SIT (CLUSTER) VARIABLE PER SCHEDULE SC PER SCHEDULE; Duration: TO BE DETERMINED *Please review for potential replacement for e-prescription and drug interaction check* Active SIT (TRADITIONAL) VARIABLE PER SCHEDULE SC PER SCHEDULE; Duration: TO BE DETERMINED *Please review for potential replacement for e-prescription and drug interaction check* Active ZYRTEC 10 mg 1 tab(s) orally once a day; Duration: 30 day(s) Active Topamax 25 MG 2 1/2 tab(s) orally 2 times a day; Duration: 30 day(s) Active EPIPEN 2-ADDISON 0.3 mg 0.3 mg intramuscular ly once; Duration: 1 dose(s) Active TOPAMAX 25 mg 2 1/2 tab(s) orally 2 times a day; Duration: 30 day(s) Active Cymbalta 30 MG 1 cap(s) orally once a day; Duration: 30 day(s) Active Flonase Allergy Relief 50 MCG/ACT 2 spray(s) intranasally once a day; Duration: 30 day(s) Active Problems Problem Type SNOMED Code ICD Code Onset Dates Problem Status W/U Status Risk Notes Problem Chronic allergic conjunctivitis (80902148) Chronic allergic conjunctivitis NOS (372.14) Active confirmed Problem Allergic rhinitis due to allergen (52117335) Allergic rhinitis due to allergen (477.8) Active confirmed Problem Headache (25163708) Headache (784.0) Active confirmed Plan Of Treatment No Information Insurance Providers Payer Name Payer Address Payer Phone Subscriber Number Group Number Insured Name Patient Relationship to Insured Coverage Start Date Coverage End Date [facility] [address] [facility], [place] [id number] Wan Hernandez Child - Insured has Financial Responsibility Medical (General) History Medical History History ICD Code Allergic rhinitis and conjunctivitis Migraine headache Surgical History Surgery Date(Month/Year) Removal of small piece of skull to relie ve pressure on the brain 2010 Tonsillectomy 2003 Oral surgery 2013 Hospitalization History Reason Date(Month/Year) Surgery on skull 2010
--- NOTE | 2025-06-25 14:01 | OBADM ---
This patient, Sunshine Puente, admitted to the OB room [facility] for observation. Patient/family oriented to hospital policies and general routines including ID bracelet, bed and alarms, visiting hours, pain management, procedures, bathroom and other care routines, personal items, smoking policy, room service/diet, and visiting hours. Patient/Family are encouraged to report perceived risks to care and to ask questions if they do not understand what they are told or what they should do.
[2025-06-25 14:25] LABS: Add Urine Microscopic? YES; Appearance Urine Turbid (Clear); Glucose Urine UA Negative (Negative); Leukocyte Esterase Ur 2+ LEU/UL (Negative); Nitrate Urine Negative (Negative); Specific Grav Ur 1.030 (1.001-1.035)
[2025-06-25 15:25] LABS: OBXCEM ROM Plus Negative (Negative)
--- NOTE | 2025-06-28 07:50 | PM.OBTRLD ---
OB - Triage/Final Diagnosis Visit Information Comments/Additional reasons for admission: I have assessed the risk for this patient, Sunshine Puente, and determined that she would benefit from observation care. Evaluation Laboratory results: Laboratory Tests 06/25/25 06/25/25 13:48 14:00 Urine Color Dark yellow Urine Appearance Turbid H Urine pH 5.5 Ur Specific Crawford 1.030 Urine Protein 1+ H Urine Glucose (UA) Negative Urine Ketones Trace H Ur Blood (Man) Negative Urine Nitrate Negative Urine Bilirubin 1+ H Urine Urobilinogen 1.0 Leukocyte Esterase Rfl 2+ H Urine RBC 3-5 H Urine WBC 51-100 H Ur Squamous Epith Cells Many H Calcium Oxalate Crystal Present Urine Bacteria 4+ H Urine Casts 11-20 Membranes Rupture Rom plus negative Final Diagnosis (1) Vaginal discharge during : Code(s): O26.899 - Other specified related conditions, unspecified trimester; N89.8 - Other specified noninflammatory disorders of vagina Status: Acute
== END 2025-06-25 15:00 | disposition home or self-care (01) ==
PROVIDERS: Admitting Provider Obstetrics & Gynecology; Visit Provider Obstetrics & Gynecology
DX: O26.893 Other specified pregnancy related conditions, third trimester (principal); N89.8 Other specified noninflammatory disorders of vagina; Z3A.35 35 weeks gestation of pregnancy
CPT/HCPCS: 81001; 84112; G0378; G0379

== ENCOUNTER 2025-07-18 17:14 | Outpatient (CLI) | payer OTHER, SELFPAY ==
--- OUTSIDE RECORDS SUMMARY | 2025-07-18 18:01 | XMS_ITS | Clinical Summary ---
Author Organization [facility] Address [facility] [place] [address] Care Team Providers Care Joist Setter Name Role Phone None, Provider MD Primary [...] unspecified laterality 2014 Overview (08/10/2019): Impression - [id number] Meli Bustamante: L WRIST Migraine 04/04/2015 Resolved [...] patient's age to complete this topic Insurance [employer] OPEN [facility] Care Teams Joist Setter Relationship Specialty Start Date End Date None, Provider, MD PCP - General UNKNOWN PHYSICIAN SPECIALTY 09/19/23
--- OUTSIDE RECORDS SUMMARY | 2025-07-18 18:01 | XMS_ITS | Data Portability ---
Author Organization [facility], [place] Address [address] [place] [address] [place] [address] Assessment No assessment recorded. Plan of Treatment Reminders Order Date Submit Date Provider Last Modified By Organization Details Last Modified Time Details Appointments NST 2024 09:00A M NST SCHEDULE Not available Not available Not available U/S OB BPP 2024 09:30A M ULTRASOUND Not available Not available Not available OB ROUTINE 2024 10:00A M LENNIE PITTS MD Not available Not available Not available NST 2024 09:00A M NST SCHEDULE Not available Not available Not available U/S OB BPP 2024 09:30A M ULTRASOUND Not available Not available Not available OB ROUTINE 2024 10:00A M LENNIE PITTS MD Not available Not available Not available Lab None recorde d. Referral None recorde d. Procedures None recorde d. Surgeries None recorde d. Imaging US, obstetr ic, biophys ical profile + non-str ess test 2024 025 [email or web address] [address], [address], [place], [address], 07/13/2025 16:04:46 non-str ess test 2024 025 [email or web address] [address], [address], [place], [address], 07/13/2025 11:48:29 US, obstetr ic, biophys ical profile + non-str ess test 2024 025 [email or web address] [place], [address], [place], [address], 07/06/2025 15:05:09 non-str ess test 2024 025 [email or web address] [place], [address], [place], [address], 07/06/2025 12:14:49 Medication Orders None recorde d. Patient TargetsNo targets recorded. Patient InstructionsNo instructions recorded. Reason for Referral None Reported. Results Created Date Observation Date Name Description Value Unit Range Abnormal Flag Note LastModifiedBy Organization Detail LastModifiedTime 07/06/2007/06/2025 CULTU RE: GROUP B STREP SCREE N, REFLE X SUSCE PTIBI LITY result report SEE RESULT S BELOW Test: Cultu re: Group B Strep , Refle x Susce ptibi lity ([facility]/ [facility] ) Speci men Sourc e: Vagin a/Rec alan Speci men Type: Vagin al/Re ctal Speci men Date: 2024 1332 Resul t Date: 2024 1405 Resul t Statu s: Final resul t Abnor mal: No Resul ting Lab: [facility] [address] [facility] [address] Tel: CULTU RE ----- ----- ----- --- No Group B strep isola pilar at 2 days (too ctive broth enhan cemen t) Not Available [facility] (Lab) [address] [facility], [place], [address], 07/09/2025 15:07:57 06/09/2006/09/2025 non-s tress test No observ ation record ed. [email or web address] Not Available 2024 11:52:57 06/22/2006/22/2025 US, obste tric, bioph ysica l profi le + non-s tress test No observ ation record ed. [email or web address] [place] [address], [place], [address], 06/22/2025 12:58:36 06/22/20 25 06/22/2025 US, obstphillip tric, bioph ysica l profi le + non-s tress test No observ ation record ed. [email or web address] [address], [place], [address], 06/23/2025 18:06:26 06/22/20 25 06/22/2025 non-s tress test No observ ation record ed. RODNEY [place] [address], [place], [address], 06/23/2025 16:37:16 06/22/20 25 non-s tress test No observ ation record ed. [place] [address], [place], [address], 06/22/2025 12:46:05 06/25/20 25 06/25/2025 non-s tress test No observ ation record ed. [facility] [address], [place], [address], 07/01/2025 11:15:46 06/29/20 25 06/29/2025 non-s tress test No observ ation record ed. [email or web address] [place] [address], [place], [address], 06/29/2025 16:52:13 06/29/20 25 non-s tress test No observ ation record ed. [email or web address] [place] [address], [place], [address], 06/29/2025 16:52:14 06/29/20 25 06/29/2025 US, obste tric, follo w-up No observ ation record ed. [facility] [address] [place], [address], 07/12/2025 20:51:38 06/29/2006/29/2025 imagi ng/di agnos tic resul t No observ ation record ed. [facility] [address] [place], [address], 07/08/2025 13:11:08 07/06/20 25 07/06/2025 non-s tress test No observ ation record ed. [email or web address] [place] [address], [place], [address], 07/06/2025 15:45:04 07/06/20 non-s tress test No observ ation record ed. [email or web address] [place] [address], [place], [address], 07/06/2025 15:45:05 07/06/20 25 07/06/2025 US, obste tric, bioph ysica l profi le No observ ation record ed. [email or web address] [address], [place], [address], 07/06/2025 21:16:33 07/06/20 25 07/06/2025 US, obste tric, bioph ysica l profi le + non-s tress test No observ ation record ed. [email or web address] [place] [address], [place], [address], 07/06/2025 13:28:16 07/13/20 25 07/13/2025 non-s tress test No observ ation record ed. [facility] [address], [place], [address], 07/13/2025 19:09:24 07/13/20 25 non-s tress test No observ ation record ed. RODNEY [place] [address], [place], [address], 07/13/2025 19:09:24 07/13/20 25 07/13/2025 US, obste tric, bioph ysica l profi le + non-s tress test No observ ation record ed. [email or web address] [place] [address], [place], [address], 07/13/2025 12:29:52 07/13/20 25 07/13/2025 US, obste tric, bioph ysica l profi le + non-s tress test No observ ation record ed. RODNEYKIRSTIE [address], [place], [address], 07/13/2025 21:09:14 Result Notes None recorded. Problems Name Problem SNOMED Code Status Onset Date Resolution Date Notes Provider Name and Address Organization Details Recorded Time 88815256 Active 2024 Clarissa curran, [facility] 5 15:59:40 Mixed anxiety and depressiv e disorder 545616566 Active 2024 treated with 50mg sertralin e Gregory Monge MD [address], [place], [address], [place] [facility] 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 5 10:28:22 Migraine without aura, not refractor y 359976869 Active 2024 Gregory Monge MD [address], [place], [address], [place] [facility] 5 16:04:15 Serum thyroid stimulati ng hormone level outside reference range 325237980 Active 2024 consider treating TSH of 3.2, could repeat TSH Repeat TSH & FT4 every 6wks Makeda curran, [facility] 5 23:12:30 Placenta circumval sean 1208093 Active 2024 32wk growth Makeda Zapata [facility] 5 22:10:47 Body mass index 40+ - severely obese 736786308 Active 2024 BMI >50 testing @ 34wks Makeda Zapata [facility] 5 23:14:02 Problem Notes None recorded. Procedures Surgical History Date Name Laterality Status Provider Name and Address Organization Details Recorded Time 5 Date of Last Pap Smear completed [facility] 02/04/2025 15:44:36 5 tonsilectomy/a denoids completed [facility] 02/04/2025 15:48:12 2 operation on bone of skull completed [facility] 02/04/2025 15:47:45 Imaging Results None recorded. Procedure Notes None recorded. Medical Equipment None Reported. Allergies No known drug allergies Medications Name Sig Start Date Stop Date Status Note LastModified by Organization Details LastModified Time fluconazole 150 mg tablet TAKE 1 TABLET BY MOUTH A ONE TIME DOSE active Not Available Not Available No t Available prednisone 20 mg tablet TAKE 2 TABLETS [...] mg capsule TAKE 1 CAPSULE BY MOUTH EVERY 12 HOURS FOR 3 DAYS active Not Available Not Available No t Available ergocalcife rol (vitamin D2) 1,250 mcg [...] completed Not Available Not Available Not Available nitrofurant oin monohydrate /macrocryst als 100 mg capsule TAKE 1 CAPSULE BY MOUTH EVERY 12 HOURS FOR 7 DAYS 06/01 completed Not Available Not Available Not Available sertraline 02/04 completed Not Available Not Available Not Available active Not Available Not Avai lable Not Available Vitals Date Recorded Body weight Body weight Systolic And Diastolic Systolic And Diastolic Provider Name and Address Organization Details Last Updated DateTime 07/06/2025 322266.39 979 g 476296.39 979 g 128/84 mm[Hg] 128/84 mm[Hg] Marlen Arzate [facility] 07/06/2025 12:11:35 Date Recorded Body weight Body height Body mass index (BMI) Body weight Systolic And Diastolic Systolic And Diastolic Provider Name and Address Organization Details Last Updated DateTime 185910. 1769 g 170.18 cm 57.9 kg/m2 185624. 18 g 129/81 mm[Hg] 129/81 mm[Hg] Marlen Arzate [facility] 11:51:01 Social History Question Answer Notes LastModified by [...] Or The Highest Degree You Have Received? [id number] Information not available 02/04/2025 Are There Any [...] not available 02/04/2025 Are you able to walk independently without assistance or assistive devices? 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 Occasional Information not available 02/04/2025 Mental Status Question Answer Note LastModified by Organization D etails LastModified Time Do you feel stressed (tense, restless, nervous, or anxious, or unable to sleep at night)? [id number] Information not available 02/04/2025 Family History Relationship [...] available 2024 15:41:24 Medical History Condition Response Allergies (Food, seasonal, environmental ) Y Polycystic ovary syndrome Y Anxiety Disorder Y Depression/ depression Y Headaches Y Gynecological History Statement/Question Response Abnormal Pap [...] Diagnosis SNOMED-CT Code Diagnosis ICD10 Code Diagnosis IMO Codes Diagnosis Note [id number] Gregory Monge MD [place] [address],[place] [address] 02/04/2025 15:10:21 02/04/2025 16:25:08 care status 300328837 Z34.82 38617630 [id number] Gregory Monge MD [place] [address] [address] 02/15/2025 17:28:17 02/15/2025 17:53:37 Maternal obesity complicating , childbirth and the puerperium, antepartum 0417305779 07 O99.210 Z3A.16 9300138516 [id number] Gregory Monge MD [place] [address],[place] [address] 03/09/2025 10:26:05 03/09/2025 11:47:54 screening for malformation 745345645 Z36.3 Z3A.19 6860980147 [id number] Gregory Monge MD [place] [address] [place] [address] 03/09/2025 11:23:34 03/09/2025 13:51:35 Thyroid hormone tests outside reference range 678387043 R79.89 261672 care status 24 7714160 Z34.82 51727552 [id number] LENNIE PITTS MD [place] [address] [place] [address] 04/12/2025 15:44:25 04/12/2025 16:37:38 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 8165508143 Gestation period, 24 weeks 687888380 Z3A.24 2342896 [id number] LENNIE PITTS MD [place] [address] [place] [address] 05/11/2025 14:59:40 05/11/2025 15:48:50 screening 410487806 Z36.89 Acquired hypothyroidism 474082827 E03.9 33301 Placenta circumvallata 6239945 O43.749 6938362 Body mass index 40+ - severely obese 705795645 Z68.43 5886470554 Serum thyr oid stimulating hormone level outside reference range 052300451 R79.89 2914226246 Ramon-Asim los syndrome 924436811 Q79.60 970515 Gestation period, 28 weeks 33019338 Z3A.28 1048897 [id number] LENNIE PITTS MD [place] [address],[place] [address] 06/01/2025 15:36:03 06/01/2025 16:57:37 Mixed anxiety and depressive disorder 486304560 F32.A F41.9 720133 Ramon-Asim los syndrome 282767159 Q79.60 181188 Body mass index 40+ - severely obese 063293466 Z68.43 1253943682 Gestation period, 31 weeks 77113139 Z3A.31 7781001 [id number] LENNIE PITTS MD [place] [address] [place] [address] 06/22/2025 09:31:23 06/22/2025 12:51:12 Maternal obesity complicating , childbirth and the puerperium, antepartum 3697722531 07 O99.210 1800681686 [id number] LENNIE PITTS MD [place] [address] [place] [address] 06/22/2025 09:32:46 06/22/2025 10:42:27 Obesity 392952913 O99.213 O99.891 Z3A.34 86811943 [id number] LENNIE PITTS MD [place] [address] [place] [address] 06/22/2025 09:32:59 06/22/2025 11:03:50 Abnormal placenta affecting management of mother 75701924 O43.199 99658517 Body mass index 40+ - severely obese 845272003 Z68.43 5466564636 Placenta circumvallata 8919577 O43.459 6600996 Ramon-Asim los syndrome 397799942 Q79.60 086569 Mixed anxi ety and depressive disorder 992112022 F32.A F41.9 991836 Gestation period, 34 weeks 66582776 Z3A.34 8477292 [id number] LENNIE PITTS MD [place] [address],[place] [address] 06/29/2025 11:56:50 06/29/2025 14:41:48 Maternal obesity complicating , childbirth and the puerperium, antepartum 7092980465 07 O99.210 4423861337 [id number] LENNIE PITTS MD [place] [address],[place] [address] 06/29/2025 11:57:46 06/29/2025 14:25:27 Abnormal placenta affecting management of mother 33306855 O43.199 37677698 Body mass index 40+ - severely obese 712565914 Z68.43 0725898434 Placenta circumvallata 6475503 O43.466 0543366 Ramon-Asim los syndrome 123445662 Q79.60 464195 Mixed anxi ety and depressive disorder 784098745 F32.A F41.9 585774 Gestation period, 35 weeks 17394039 Z3A.35 0109831 [id number] LENNIE PITTS MD [place] [address],[place] [address] 07/06/2025 11:30:32 07/06/2025 12:14:49 Maternal obesity complicating , childbirth and the puerperium, antepartum 7663729240 07 O99.210 3360385234 [id number] LENNIE PITTS MD [place] [address],[place] [address] 07/06/2025 11:30:58 07/06/2025 12:39:27 Obesity 597381623 O99.213 Z3A.36 09860800 [id number] LENNIE PITTS MD [place] [address],[place] [address] 07/06/2025 11:31:23 07/06/2025 13:01:53 Abnormal placenta affecting management of mother 60815130 O43.199 86032728 Body mass index 40+ - severely obese 067091781 Z68.43 9018047821 Placenta circumvallata 4516806 O43.063 3407916 Serum thyr oid stimulating hormone level outside reference range 948029024 R79.89 2457466790 Ramon-Asim los syndrome 781050717 Q79.60 306735 Mixed anxi ety and depressive disorder 669091240 F32.A F41.9 025530 Gestation period, 36 weeks 16523154 Z3A.36 9669761 [id number] LENNIE PITTS MD [place] [address],[place] [address] 07/13/2025 10:58:47 07/13/2025 11:48:29 Maternal obesity complicating , childbirth and the puerperium, antepartum 8827064373 07 O99.210 6994726664 [id number] LENNIE PITTS MD [place] [address] [address] 07/13/2025 10:59:20 07/13/2025 11:56:17 Obesity 625279647 O99.213 Z3A.37 12267421 [id number] LENNIE PITTS MD [place] [address],[place] [address] 07/13/2025 10:59:39 07/13/2025 12:25:54 Abnormal placenta affecting management of mother 23420287 O43.199 28467040 Body mass index 40+ - severely obese 226603840 Z68.43 8271070512 Placenta circumvallata 8113711 O43.530 8521594 Serum thyr oid stimulating hormone level outside reference range 640729071 R79.89 1112685031 Ramon-Asim los syndrome 458892847 Q79.60 232083 Mixed anxi ety and depressive disorder 055185340 F32.A F41.9 868185 Gestation period, 37 weeks 12154488 Z3A.37 4916288 Health Concerns Section Related Observation LastModified by Organization Detai ls LastModified Time None Recorded Concern Status LastModified by Organization Details LastModified Time None Recorded Advance Directives Directive N: Payers Insurance Date Sequence Insurance Name Policy Number Policy Lord Covered Member ID Lord Member ID Guarantor Name 07/17/2025 1 [facility] [id number] Sunshine Puente [id number] Sunshine Puente 06/29/2025 PAYMENT PLAN Sunshine Puente 02/18/2025 1 [facility] [id number] Gui Puente [id number] Sunshine Dorene MeekPuente Notes Date Note Type Note Provider Name and Address Organization Details Recorded Time 07/06/2025 text/html Generic HPI TemplateReported by Patient Marlen Kurtzzenaida curran, [facility] 07/06/2025 14:26:15 07/13/2025 text/html Generic HPI TemplateReported by Patient LENNIE PITTS MD [address], [place], [address], [facility] 07/13/2025 12:24:05 OBGyn Episode Ob Episode Information Episode Created Date Number of Fetuses Patient Bloodtype Patient rh Status Prepregnancy Weight lbs Domestic Partner Domestic Partner Phone Father Name Lobster Man Status 02/05/20 25 1 CLOSED Fetus Data First Name Last Name Admitted to NICU Weight (g) Sex Living Outcome Pediatric Complications Fetus ID Race Codes Race Delivery Type 3883.65 4704 M Full Term 28183 Vaginal Delivery Palmer Calculation Initial Palmer Date [...] Domestic Partner Domestic Partner Phone Father Name Lobster Man Status 02/05/20 25 1 CLOSED Fetus Data First Name Last Name Admitted to NICU Weight (g) Sex Living Outcome Pediatric Complications Fetus ID Race Codes Race Delivery Type , Spontane ous 29552 Palmer Calculation Initial Palmer Date Initial Exam [...] Domestic Partner Domestic Partner Phone Father Name Lobster Man Status 02/05/20 1 A Positive OPEN Fetus Data First Name Last Name Admitted to NICU Weight (g) Sex Living Outcome Pediatric Complications Fetus ID Race Codes Race Delivery Type 56178 Problems Problem Notes elevated BP 142/84 RPT 120/7 2 [facility] pedro pre e prophylaxis start 182mg bASA , Basline pre e labs recommended by [facility] CBC/CMP/PCR/24hr TP Problem Name Start Date End Date Resolution Snomed Code Not e Mixed anxiety and depressive disorder 02/04/2025 665737801 treated with 50mg sertraline Migraine without aura, not refractory 02/04/2025 825520073 Body mass index 40+ - severely obese 04/27/2025 743778035 BMI >50 ant enatal testing @ 34wks Ramon-Danlos syndrome 02/04/2025 609973986 TO REFER TO [facility] FOR POTENTIAL CONCERNS, CARDIAC OR OTHERWISEReferral faxed to [facility] 03/11/25 Scheduled [facility] 03/30/25 0945 Level II us and consult 04/27/25 1030 us & 05/28 1:45 us only consult with anesthiaology delivery hospitalreferral to [facility] Serum thyroid stimulating hormone level outside reference range 02/04/2025 143825845 consider jaison ating TSH of 3.2, could repeat TSH Repeat TSH & FT4 every 6wks Placenta circumvallata 03/09/2025 8005168 32wk growth us Palmer Calculation Initial Palmer [...] 25 19 [email or web address] 02/04/2025 07/30/20 25 2 Pre-jessee Flowsheet Flowsheet Date 02/04/2025 Gaytan Score Blood Edema Fundus Height Fundus Units Glucose Ketones Leukocytes Nitrite Labor Signs Protein Cervic Dilation Cervic Effacement Cervic Station Type Weight in lbs Pre/Post Dialysis Refused Weight 343.930068441963 BP Diastolic BP Location Tested BP Systolic [...] Weight in lbs Pre/Post Dialysis Refused Weight 347.764687595998 BP Diastolic BP Location Tested BP Systolic [...] bleeding, no loss of fluid, no cramping Flowsheet Date 04/12/2025 Gaytan Score Blood Edema Fundus Height Fundus Units Glucose Ketones Leukocytes Nitrite Labor Signs Protein Cervic Dilation Cervic Effacement Cervic Station trace none Type Weight in lbs Pre/Post Dialysis Refused Weight 353.034522305216 BP Diastolic BP Location Tested BP Systolic BP Type 80 L arm 139 sitting Fetus Heart Rate Present A 145 Fetus Movement A Yes Comments Good movement. No cram ping or bleeding. Was seen for UTI at end of February, will send CHALINO today. Asymptomatic. Saw MFM, no new recs for EDS aside from rheumatology referral. Repeat US scheduled with [facility] to complete anatomy. RTC 4 weeks, discussed GCT and labs. Flowsheet Date 05/11/2025 Gaytan Score Blood Edema Fundus Height Fundus Units Glucose Ketones Leukocytes Nitrite Labor Signs Protein Cervic Dilation Cervic Effacement Cervic Station neg none Type Weight in lbs Pre/Post Dialysis Refused Weight 355.059583068748 BP Diastolic BP Location Tested BP Systolic BP Type 76 L arm 119 sitting Fetus Heart Rate Present A 145 Fetus Movement A Yes Comments Good movement. No cram ping or bleeding. Saw MFM, EFW 53%, repeat growth in 4 weeks. Will start testing at 34 weeks for obesity. GCT and labs today, will also add TSH/FT4 for hx of elevated TSH. Discussed tdap vaccine. RTC 2 weeks. Flowsheet Date 06/01/2025 Gaytan Score Blood Edema Fundus Height Fundus Units Glucose Ketones Leukocytes Nitrite Labor Signs Protein Cervic Dilation Cervic Effacement Cervic Station Type Weight in lbs Pre/Post Dialysis Refused Weight 361.81352825909 BP Diastolic BP Location Tested BP Systolic BP Type 79 L arm 121 sitting Fetus Heart Rate Present A 145 Fetus Movement A Yes Comments Doing well, good movem ent. No cramping or bleeding. Saw MFM on 05/28, EFW 63%. Will start testing at 34 weeks. GCT and labs normal. Discussed preadmission. RTC 2 weeks. Flowsheet Date 06/22/2025 Gaytan Score Blood Edema Fundus Height Fundus Units Glucose Ketones Leukocytes Nitrite Labor Signs Protein Cervic Dilation Cervic Effacement Cervic Station Type Weight in lbs Pre/Post Dialysis Refused Weight 363.126861170592 BP Diastolic BP Location Tested BP Systolic BP Type 81 L arm 125 sitting Fetus Heart Rate Present Fetus Movement Comments Flowsheet Date 06/22/2025 Gaytan Score Blood Edema Fundus Height Fundus Units Glucose Ketones Leukocytes Nitrite Labor Signs Protein Cervic Dilation Cervic Effacement Cervic Station Type Weight in lbs Pre/Post Dialysis Refused BP Diastolic BP Location Tested BP Systolic BP Type Fetus Heart Rate Present Fetus Movement Comments Flowsheet Date 06/22/2025 Gaytan Score Blood Edema Fundus Height Fundus Units Glucose Ketones Leukocytes Nitrite Labor Signs Protein Cervic Dilation Cervic Effacement Cervic Station Type Weight in lbs Pre/Post Dialysis Refused Weight 363.793504010193 BP Diastolic BP Location Tested BP Systolic BP Type 81 L arm 125 sitting Fetus Heart Rate Present Fetus Movement Comments Good movement. No cram ping or bleeding. BPP 10/10. Needs to schedule preadmission. Discussed tdap and RSV vaccines. RTC 1 week. Flowsheet Date 06/29/2025 Gaytan Score Blood Edema Fundus Height Fundus Units Glucose Ketones Leukocytes Nitrite Labor Signs Protein Cervic Dilation Cervic Effacement Cervic Station Type Weight in lbs Pre/Post Dialysis Refused Weight 361.98102788208 BP Diastolic BP Location Tested BP Systolic BP Type 81 L arm 141 sitting Fetus Heart Rate Present Fetus Movement A Yes Comments Flowsheet Date 06/29/2025 Gaytan Score Blood Edema Fundus Height Fundus Units Glucose Ketones Leukocytes Nitrite Labor Signs Protein Cervic Dilation Cervic Effacement Cervic Station Type Weight in lbs Pre/Post Dialysis Refused 361.180288280401 BP Diastolic BP Location Tested BP Systolic BP Type 81 L arm 141 sitting Fetus Heart Rate Present Fetus Movement A Yes Comments Good movement. No cram ping or bleeding. Recieved Tdap, RSV, and flu vaccines. NST reactive. MFM US at 1pm. Preadmission scheduled. Desires spontaneous labor. RTC 1 week. Flowsheet Date 07/06/2025 Gaytan Score Blood Edema Fundus Height Fundus Units Glucose Ketones Leukocytes Nitrite Labor Signs Protein Cervic Dilation Cervic Effacement Cervic Station Type Weight in lbs Pre/Post Dialysis Refused 367.16000510969 BP Diastolic BP Location Tested BP Systolic BP Type 84 L arm 128 sitting Fetus Heart Rate Present Fetus Movement A Yes Comments Flowsheet Date 07/06/2025 Gaytan Score Blood Edema Fundus Height Fundus Units Glucose Ketones Leukocytes Nitrite Labor Signs Protein Cervic Dilation Cervic Effacement Cervic Station Type Weight in lbs Pre/Post Dialysis Refused BP Diastolic BP Location Tested BP Systolic BP Type Fetus Heart Rate Present Fetus Movement Comments Flowsheet Date 07/06/2025 Gaytan Score Blood Edema Fundus Height Fundus Units Glucose Ketones Leukocytes Nitrite Labor Signs Protein Cervic Dilation Cervic Effacement Cervic Station 1cm 50% -3 Type Weight in lbs Pre/Post Dialysis Refused [id number] BP Diastolic BP Location Tested BP Systolic BP Type 84 L arm 128 sitting Fetus Heart Rate Present A 155 Fetus Movement A Yes Comments Good movement. Irregul ar contractions. No bleeding or LOF. Having increased hip pain. EFW 87% at MFM last week, AC >90%. BPP 07/30 today. GBS collected today. SVE 1.5cm. RTC 1 week. Flowsheet Date 07/13/2025 Gaytan Score Blood Edema Fundus Height Fundus Units Glucose Ketones Leukocytes Nitrite Labor Signs Protein Cervic Dilation Cervic Effacement Cervic Station Type Weight in lbs Pre/Post Dialysis Refused [id number] BP Diastolic BP Location Tested BP Systolic BP Type 81 L arm 129 sitting Fetus Heart Rate Present Fetus Movement A Yes Comments Flowsheet Date 07/13/2025 Gaytan Score Blood Edema Fundus Height Fundus Units Glucose Ketones Leukocytes Nitrite Labor Signs Protein Cervic Dilation Cervic Effacement Cervic Station Type Weight in lbs Pre/Post Dialysis Refused BP Diastolic BP Location Tested BP Systolic BP Type Fetus Heart Rate Present Fetus Movement Comments Flowsheet Date 07/13/2025 Gaytan Score Blood Edema Fundus Height Fundus Units Glucose Ketones Leukocytes Nitrite Labor Signs Protein Cervic Dilation Cervic Effacement Cervic Station 3cm 60% -3 Type Weight in lbs Pre/Post Dialysis Refused Weight 370.521477229287 BP Diastolic BP Location Tested BP Systolic BP Type 81 L arm 129 sitting Fetus Heart Rate Present A Present Fetus Movement A Yes Comments Doing well, fatigued. Good f etal movement. No regular cramping or bleeding. GBS negative. Labor precautions reviewed. Menstrual History Last Menstrual Date Menses Monthly [...]
--- OUTSIDE RECORDS SUMMARY | 2025-07-18 18:01 | XMS_ITS | Patient Health Record ---
Author Organization Formerly [facility] [place] ([address]) Address [address] [facility] [address] [place] [address] Care Team Providers Care Nurse Emergency Name Role Phone Shama MEHTA, Leeann Primary Care Provider Unavailable Lorraine Bhumika Unavailable [phone] Reason For Referral No Information Medications Medication SIG (Take, Route, Frequency, Duration) Notes Start Date End Date Status FIORICET 325 mg-50 mg-40 mg 2 tab(s) orally every 4 hours; Duration: 0 Active Fioricet 325 MG-50 MG-40 MG 2 TAB(S) ORALLY EVERY 4 HOURS; Duration: 0 *Please review and pick correct strength-formulat ion from etechies.in options. If intended option is not shown, [...] Status Risk Notes Problem Chronic allergic conjunctivitis (90627046) Chronic allergic conjunctivitis NOS (372.14) Active confirmed Problem Allergic rhinitis due to allergen (07835497) Allergic rhinitis due to allergen (477.8) Active confirmed Problem Headache (32854263) Headache (784.0) Active confirmed Plan Of Treatment No Information Insurance Providers Payer Name Payer Address Payer Phone Subscriber Number Group Number Insured Name Patient Relationship to Insured Coverage Start Date Coverage End Date [facility] [address] [facility], [place] [id number] Wan Hernandez Child - Insured has Financial Responsibility Medical (General) History Medical History History ICD Code Allergic rhinitis and conjunctivitis Migraine headache Surgical History Surgery Date(Month/Year) Removal of small piece of skull to relie ve pressure on the brain 2010 Tonsillectomy 2003 Oral surgery 2013 Hospitalization History Reason Date(Month/Year) Surgery on skull 2010
--- OUTSIDE RECORDS SUMMARY | 2025-07-18 18:01 | XMS_ITS | Clinical Summary ---
Author Organization [facility] Address [address] [place] [address] Care Team Providers Care Cribber Name Role Phone Meli Bustamante MD Primary Care Provider [phone] Source Comments [facility],non-owned Affiliates and Associated Physician Practices is amultiple site organization consisting of ambulatory clinics and hospital sitesin [place], [place], [place] and [place]. This disclosure is being madepursuant to the Care Everywhere program and may not contain all information available regarding this patient. Last updated 18.[facility] Allergies No known active allergies Medications * Be aware that medications may not be up to date on this document. Alwaysverify current medications with the patient. vitamin D, ergocalciferol, (Drisdol) 1.25 MG (66863 UT) capsule Take 1 (one) capsule by [...] Encounters Date Type Department Care Team Description 07/09/2025 Orders Only [facility] [address] [place] [id number] Ivon Alejandro RN 06/29/2025 12:57 PM CDT - 06/29/2025 11:59 PM CDT Hospital Encounter [facility] [address] [place] [address] Emmett Carvalho DO [employer] Discharge Disposition: Home or Self Care 05/28/2025 1:40 PM CDT - 05/28/2025 11:59 PM CDT Hospital Encounter [facility] [address] [place] [address] Donavan Crawford MD Discharge Disposition: Home or Self Care 04/27/2025 10:12 AM CDT - 04/27/2025 11:59 PM CDT Hospital Encounter [facility] [address] [place] [phone] Krzysztof Crawford MD Discharge Disposition: Home or Self Care 04/27/2025 Refill [facility] - [employer] [address] [place] [address], [address] [place] [phone] Daniel Cochran MD Refill Request from Last 3 Months Immunizations Immunization Administration [...] Recorded Patient Health Questionnaire-2 Score 1 12/15/2024 [facility] - Occupational Stress [...] medical appointments or from getting medications? No 03/1 12/2022 In the past 12 months, has l [...] place to sleep or slept in a mcc (including now)? No 12/31/2022 [place] Depression Scale Answer Date Recorded [place] Depression Scale Total 9 03/30/2025 The thought [...] 03/30/2025 10:30 AM CDT Plan of Treatment Health Maintenance Due Date Last Done Comments HPV VACCINE (3 - 2-dose series) 06/04/2008 02/25/2008, 12/05/2007 HEPATITIS C SCREENING 07/16/2014 OB-TDAP CURRENT 04/30/2025 11/12/2022, COVID-19 VACCINE ( season) 2025 04/01/2021, 02/26/2021 INFLUENZA VACCINE (#1) 2025 11/30/2022, 2018 OB-GROUP B STREP SCREEN 06/25/2025 11/30/2022, 01/27 [...] 11/22, 05/11/2022 OB-ONE HOUR GLUCOSE Completed 05/11/2025, MENINGOCOCCAL (Group B) VACCINE SHARED DECISION-MAKING Aged Out No longer eligible based on patient's age to complete this topic PNEUMOCOCCAL VACCINE Aged Out No long er eligible based on patient's age to complete this topic Respiratory Syncytial Virus (RSV) Vaccine Pt: or over 60 yrs (No Doses Required) Completed Procedures Procedure Name Priority Date/Time Associated Diagnosis Comments SONOGRAM - COMPLETE Routine 06/29/2025 1 :00 PM CDT Ramon-Danlos syndrome (HCC) Obesity in (HCC) 30 weeks gestation of (HCC) Encounter for ultrasound to assess growth (HCC) Encounter for follow-up ultrasound of anatomy (HCC) Encounter for other screening follow-up (HCC) SONOGRAM - COMPLETE Routine 05/28/2025 1 :57 PM CDT Ramon-Danlos syndrome (HCC) Obesity in (HCC) 30 weeks gestation of (HCC) Encounter for ultrasound to assess growth (HCC) SONOGRAM - COMPLETE Routine 04/27/2025 1 0:27 AM CDT Ramon-Danlos syndrome (HCC) Obesity in (HCC) 26 weeks gestation of (HCC) Encounter for follow-up ultrasound of anatomy ([facility]) PAP IG LB CT+NG+TV RFLX HPV ASCU Routine 12/10/2024 3:52 PM TASTE TESTER 7 weeks gestation of HIV-1 HIV-2 ANTIBODY + HIV P24 AG PANEL Routine 12/10/2024 3:34 PM TASTE TESTER 7 weeks gestation of CULTURE STREP B Routine 11/30/2022 9:56 AM TASTE TESTER 35 weeks gestation of GLUCOSE CHALLENGE Routine 10/01/2022 10: 00 AM TASTE TESTER 23 weeks gestation of from Last 3 Months or Most Recently Relevant to Health Maintenance Results * Sonogram - Complete (06/29/2025 1:00 PM CDT) Only the most recent of3 resultswithin the time period is included. Linked Results Indication ======== Screening Follow-Up incomplete Anatomy Obesity complicating , Class 3 - BMI of 40.0 or greater Ramon Danlos syndrome History ====== OB History 3. Para 1 [id number] 1. live 2022. Gest. age 39 w + 3 d. Weight 3,909 g. Sex of child: male. Details: 2. miscarriage 2023 Lab Tests Test Date Result NIPT Low risk, Male Maternal Assessment Physical Exam Height 170 cm, 5 ft 7 in. Initial weight 157 kg, 347 lb. Initial BMI 54.35 kg/m Method ====== Transabdominal ultrasound. View: Sufficient ========= Eason . Number of fetuses: 1 Dating ====== Date Details Gest. age ANNE LMP 10/23/2024 35 w + 4 d 07/30/2025 Stated ANNE 35 w + 4 d 07/30/2025 Previous U/S 12/21/2024 CRL 15.9 mm 35 w + 1 d 08/02/2025 U/S 06/29/2025 based upon AC, BPD, Femur, HC 37 w + 6 d 07/14/2025 Assigned dating based on the LMP, selected on 03/30/2025 35 w + 4 d 07/30/2025 General Evaluation Cardiac activity present. FHR 136 bpm. Presentation: cephalic Placenta: Placental site: anterior no previa Amniotic fluid: Amount of AF: normal. MVP 4.0 cm. PREMA 11.3 cm. Q1 3.1 cm, Q2 4.0 cm, Q3 2.3 cm, Q4 2.0 cm Biometry BPD 95.7 mm 39w 1d >99% Hadlock HC 346.7 mm 40w 1d 98% Hadlock AC 331.4 mm 37w 0d 91% Hadlock Femur 68.1 mm 35w 0d 29% Hadlock Humerus 60.9 mm 35w 2d 62% Prabhjot HC / AC 1.05 Weight Calculation: EFW 3,118 g 87% Hadlock EFW (lb,oz) 6 lb 14 oz EFW by Hadlock (ITP-VS-UZ-FL) overall normal range, but the AC is >90% Growth Overview Exam date GA BPD (mm) HC (mm) AC (mm) FL (mm) HL (mm) EFW (g) 03/30/2025 22w 4d 50.6 8% 208.6 52% 195.2 88% 38.4 30% 36.5 47% 575 74% 04/27/2025 26w 4d 64.3 21% 262.1 85% 222.4 44% 50.4 51% 44.7 43% 1004 53% 05/28/2025 31w 0d 81 83% 305.5 90% 270.2 50% 61.3 59% 52.4 40% 1826 63% 06/29/2025 35w 4d 95.7 >99% 346.7 98% 331.4 91% 68.1 29% 60.9 62% 3118 87% Anatomy The following structures appear normal: Heart / Thorax Aortic arch view. Abdomen Stomach. Kidneys. Bladder. sex: male. Biophysical Profile 2: breathing movements 2: Gross body movements 2: tone 2: Amniotic fluid volume 05/28 Biophysical profile score Impression ========= Here today for interval growth ultrasound due to increased BMI greater than 35 and attempt to complete the anatomical survey. Single, live, intrauterine at 35w 4d The growth is overall normal range, but the AC is >90% . The amniotic fluid volume is normal. Normal appearing anterior placenta. The biophysical profile is reassuring 05/28. No major malformations noted. The anatomical survey is now complete. Comment ======== The biometry showing good interval growth in the estimated weight is appropriate for the gestational age 87% but AC 91% along with head measurements. The head measurements are still within 2 standard deviation of the norm and this is most likely a normal variant there were no intracranial abnormalities noted. No bony/ skeletal abnormalities noted. No evidence of macrocephaly. This is most likely a constitutionally large fetus in light of negative glucose screen and prior history of LGA at term with no GDM. The overall status is reassuring with BPP 8/8 and normal amniotic fluid volume. The remainder of the anatomical survey showed no gross abnormalities as noted above. Both ultrasound and screening/testing have their limitations in detecting all congenital anomalies and chromosomal abnormalities/inher ited disorders or genetic syndromes. Follow-up ======== Due to BMI greater than 35 will initiate weekly testing and repeat interval growth ultrasound in 4 weeks if remains undelivered. Pre term labor and preeclampsia precautions along with kick counts. Thank you for allowing us to partake in your patient's care. 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, unspecified O99.213, E66.813: Obesity complicating , Class 3 - BMI of 40.0 or greater Z36.2: Encounter for other screening follow-up Procedures 16844: [place] [address]: Biophysical Profile [facility]O [facility] P[facility] Anatomical Region Laterality Modality Other 06/29/2025 1:00 PM CDT R Romel Monge MD [facility] ORDERABLES Edited Result - Final * PAP IG LB CT+NG+TV RFLX HPV ASCU (12/10/2024 3:52 PM TASTE TESTER) Diagnosis Comment [facility] ACCOUNT BILL Comment:NEGATIVE FOR [...] UTERINE CERVIX / Unknown 12/10/2024 3:52 PM TASTE TESTER 12/10/2024 Comment:Cervix Release to pa t Narrative [facility] ACCOUNT BILL - 12/14/2024 5:09 PM TASTE TESTER Performed at: - [facility] [address] [id number] Correctional Nurse: Marianne Koehler MD, Phone: [phone] Performed at: - [facility] [address], [place] [id number] Correctional Nurse: Marianne Koehler MD, Phone: [phone] Specimen Comment: [id number] Specimen Comment: No. of containers..01 ThinPrep Vial Daniel Cochran MD LAB - PATHOLOGY/CYTOLOGY OR DERABLES Final Result Performing Organization Address [facility] Co de Phone Number [facility] ACCOUNT BILL [address] [place] [address] * HIV-1 HIV-2 ANTIBODY + HIV P24 AG PANEL (12/10/2024 3:34 PM TASTE TESTER) Pathologist [facility] HIV Screen 4th Generation w Reflex Non Reactive Non Reactive [facility] ACCOUNT BILL Comment: HIV-1/HIV-2 antibodies and HIV-1 p24 antigen were NOT detected. There is no laboratory evidence of HIV infection. HIV Negative Blood BLOOD SPECIMEN / Unknown 12/10/2024 3:34 PM TASTE TESTER 12/10/2024 Narrative [facility] ACCOUNT BILL - 12/11/2024 7:09 AM TASTE TESTER Performed at: - [facility] [id number] Correctional Nurse: Kasi Powers PhD, Phone: [phone] Daniel Cochran MD LAB - CHEMISTRY ORDERABLES Final Result Performing Organization Address [facility] Co de Phone Number [facility] ACCOUNT BILL [address] [place] [address] * (ABNORMAL) CULTURE STREP B (11/30/2022 9:56 AM TASTE TESTER) Pathologist [facility] Strep Group B Culture Positive( A) Negative [facility] ACCOUNT BILL Comment: Centers for Disease Control and Prevention (CDC) and [place] [employer] of Obstetricians and Gynecologists (ACOG) guidelines [...] MISCELLANEOUS SAMPLES / Unknown 11/30/2022 9:56 AM TASTE TESTER 11/30/2022 Narrative Resulting Agency Comment Lab Testing performed at: [facility] [id number] Daniel Cochran MD LAB - MICROBIOLOGY ORDERABL ES Final Result Performing Organization Address [facility] Co de Phone Number [facility] ACCOUNT BILL [address] [place] [address] * GLUCOSE CHALLENGE (10/01/2022 10:00 AM TASTE TESTER) [facility] GTT 1Hr 115 70 - 139 mg/dL [facility] ACCOUNT BILL Comment: According to ADA, a glucose threshold of >139 mg/dL after 50-gram load identifies approximately 80% of women with gestational diabetes mellitus, while the sensitivity is further increased to approximately 90% by a threshold of >129 mg/dL. FASTING Blood BLOOD SPECIMEN / Unknown 10/01/2022 10:00 AM TASTE TESTER 10/01/2022 Narrative Resulting Agency Comment Lab Testing performed at: [facility] [id number] Daniel Cochran MD LAB - CHEMISTRY ORDERABLES Final Result Performing Organization Address [facility] Co de Phone Number [facility] ACCOUNT BILL [address] [place] [address] from Last 3 Months or Most Recently Relevant to Health Maintenance Insurance [facility] Advance Directives * Full Code (Latest Code Status on File) Date Activated Date Inactivated Comments 12/31/2022 6:16 AM 01/02/2023 9:06 PM * Full Code Date Activated Date Inactivated Comments 12/31/2022 6:02 AM 12/31/2022 6:16 AM Care Teams Cribber Relationship Specialty Start Date End Date Meli Bustamante MD PCP - General Internal Medicine 06/16/18
--- OUTSIDE RECORDS SUMMARY | 2025-07-18 18:01 | XMS_ITS | Encounter Summary ---
Author Organization [facility] Address [address] [place] [address] Care Team Providers Care Oracle Adf Developer Name Role Phone Meli Bustamante MD Primary Care Provider [phone] Encounter Details Date Type Department Care Team (Late st Contact Info) Description 07/09/2025 Orders Only [facility] [address] [place] [id number] Ivon Alejandro RN Social History Tobacco Use Types Packs/Day Years Used Date Smoking Tobacco: Never Passive Smoke Exposure: Never Smokeless Tobacco: Never Alcohol Use Standard Drinks/Week Comments Not Currently 0 (1 standard drink = 0.6 oz pur e alcohol) Overall Financial Resource Strain (CARDIA) Answe r Date Recorded How hard is it for you to pa y for the very basics like food, housing, medical care, and heating? Not hard at all 12/31/2022 PHQ-2 Answer Date Recorded Patient Health Questionnaire-2 Score 1 12/15/2024 [facility] [place] [facility] Occupat ional Health - Occupational Stress [...] place to sleep or slept in a jail (including now)? No 12/31/2022 [place] Depression Scale Answer Date Recorded [place] Depression Scale Total 9 03/30/2025 The thought [...] AM CDT Sexual Orientation Not on file documented as of this encounter Functional Status * Is person deaf or have serious hearing difficulty? Answer Date of Assessment Author No 12/31/2022 6:39 AM CDT Butch Hester * Is person blind or have serious difficulty seeing? Answer Date of Assessment Author No 12/31/2022 6:39 AM CDT Butch Hester * Does person have serious difficulty walking/climbing stairs? Answer Date of Assessment Author No 12/31/2022 6:39 AM ABIOLAT Butch Hester * Does person have difficulty dressing/bathing? Answer Date of Assessment Author No 12/31/2022 6:39 AM CDT Butch Hester * Does person have difficulty doing errands alone? Answer Date of Assessment Author No 12/31/2022 6:39 AM CDT Butch Hester documented as of this encounter Mental Status * Does person have difficulty concentrating/remembering/making decisions? Answer Entry Date Author No 12/31/2022 6:39 AM CDT Butch Hester documented in this encounter Plan of Treatment Not on file documented as of this encounter Visit Diagnoses Not on filedocumented in this encounter Care Teams Oracle Adf Developer Relationship Specialty Start Date End Date Meli Bustamante MD PCP - General Internal Medicine 06/16/18 documented as of this encounter
[2025-07-18 18:35] VITALS: PULSE 86
[2025-07-18 18:43] LABS: OBXCEM ROM Plus Negative (Negative)
--- NOTE | 2025-07-18 20:18 | OBADM ---
This patient, Sunshine Puente, admitted to the OB room Labor/Delivery/Recovery 107 for observation. Patient/family oriented to hospital policies and general routines including ID bracelet, bed and alarms, visiting hours, pain management, procedures, bathroom and other care routines, personal items, smoking policy, room service/diet, and visiting hours. Patient/Family are encouraged to report perceived risks to care and to ask questions if they do not understand what they are told or what they should do.
== END 2025-07-18 20:37 | disposition home or self-care (01) ==
LOC: ANHOBOP 17:59 → ANHLDR 18:00
PROVIDERS: Advanced Practice Midwife; Visit Provider Obstetrics & Gynecology
DX: O42.90 Premature rupture of membranes, unspecified as to length of time between rupture and onset of labor, unspecified weeks of gestation (principal); Z3A.00 Weeks of gestation of pregnancy not specified
CPT/HCPCS: 59025; 84112; 99199

== ENCOUNTER 2025-07-24 04:18 | Inpatient (IN) | payer OTHER, SELFPAY ==
[2025-07-24] VITALS (73 sets, daily range): BP systolic 73–157; BP diastolic 43–121; PULSE 59–177; RESP 18–19; TEMP 36.4–37.7; O2SAT 80–100; BMI 58.0
--- NOTE | 2025-07-24 05:04 | LDADM ---
This patient, Sunshine Puente, was admitted to Labor/Delivery/Recovery 105 on 07/24/25 at 04:18. Plans for labor, pain management and were discussed with patient. Patient/family oriented to hospital policies and general routines including ID bracelet, bed and alarms, visiting hours, pain management, procedures, bathroom and other care routines, personal items, smoking policy, room service/diet and guest tray routines, security routines, and visiting hours. Patient/Family are encouraged to report perceived risks to care and to ask questions if they do not understand what they are told or what they should do. See OBIX for further documentation.
[2025-07-24 05:05] LABS: Hematocrit 38.6 % (37.0-47.0); Hemoglobin 12.9 g/dL (12.0-15.0); Immature Granulocyte Percent A 0.8 % (0-0.5); Lymphocytes Absolute Auto 3.50 K/mm3 (0.9-3.2); Mean Corpuscular HGB Conc 33.4 g/dl (32-36); Mean Corpuscular Hemoglobin 29.6 pg (26-34); Mean Corpuscular Volume 88.5 fl (80-100); Nucleated Red Blood Cells Absolute Auto 0.000 K/mm3 (0.0-0.012); Nucleated Red Blood Cells Perc 0.0 % (0.0-0.2); Platelet Count Result 300 k/mm3 (150-375); Red Blood Count 4.36 M/mm3 (4.2-5.4); White Blood Count 13.4 K/mm3 (4.5-10.0)
[2025-07-24 05:51] LABS: Syphilis IgG/IgM Antibody Non-Reactive (Nonreactive)
[2025-07-24] MEDS: LACTATED RINGERS 1,000 ML 125 ML IV CONT ×2 (06:19→10:46)
[2025-07-24] MEDS: OXYTOCIN 30 UNITS/NS 500 ML 30 UNITS/500 ML BAG IV CONT (06:19)
[2025-07-24] MEDS: fentaNYL CITRATE INJ (*CRX) 100 MCG/2 ML VIAL 50 MCG IV PUSH (10:20)
--- NOTE | 2025-07-24 12:25 | WPDOBADMIT ---
Obstetrics - Admit Note Admission Note: record reviewed. No pertinent additions to the history and/or any subsequent changes in the physical findings that are not consistent with the expected course of the were found. Additions to the history and/or subsequent changes in the physical findings follow. Admit for SROM
--- NOTE | 2025-07-24 12:26 | PM.OBPRVD ---
OB - Vaginal Delivery Note Procedure Delivery date: 07/24/25 Induction method: None Delivery augmentation: Pitocin Delivery monitor: External FHT and Internal Uterine Route of delivery: Episiotomy description: None Laceration Description: Perineal - 1st Degree Delivery repair: vicryl Specimen: No Quantitative Blood Loss (ml): 100 Anesthesia type: Epidural Disposition: Floor Complications: No immediate complications [place] Baby Date of : 07/24/25 Time of : 12:11 Gestational Age by Date: 39 gender: Male Weight (pounds): 8 Weight (ounces): 15 presentation: vertex position: Left Occiput Anterior Placenta delivery description: Expressed Cord Vessel Description: 3 Vessels, Clamped/Cut and Delayed Cord Clamping score one minute: 8 score five minutes: 9
[2025-07-24] MEDS: OXYTOCIN 30 UNITS/NS 500 ML 30 UNITS/500 ML BAG 125 UNITS IV CONT (12:48)
[2025-07-24] MEDS: METHYLERGONOVINE MALEATE 0.2 MG/ML VIAL IM (15:20)
--- NOTE | 2025-07-24 16:40 | OBPPTRN ---
Patient transferred to post room #282 via wheelchair. Support person present. Oriented to unit, room, information board, rooming in, admission packet and security measures. Patient verbalizes understanding.
[2025-07-24] MEDS: DOCUSATE SODIUM 100 MG CAPSULE PO (17:19)
[2025-07-24] MEDS: ACETAMINOPHEN 325 MG TABLET 650 MG PO (18:26)
[2025-07-24] MEDS: IBUPROFEN 600 MG TABLET PO (18:26)
[2025-07-25] MEDS: ACETAMINOPHEN 325 MG TABLET 650 MG PO ×3 (00:05→15:20)
[2025-07-25] MEDS: IBUPROFEN 600 MG TABLET PO ×3 (00:05→15:20)
[2025-07-25 05:42] LABS: Hematocrit 39.5 % (37.0-47.0); Hemoglobin 12.6 g/dL (12.0-15.0)
[2025-07-25 08:40] VITALS: BP 131/70; PULSE 65; RESP 16; TEMP 36.6; O2SAT 99
[2025-07-25] MEDS: SERTRALINE HCL 50 MG TABLET PO (08:43)
[2025-07-25] MEDS: DOCUSATE SODIUM 100 MG CAPSULE PO ×2 (08:43→16:56)
[2025-07-25] MEDS: MULTIVIT/MIN/PREN/FOL AC/IRON TABLET 1 TAB PO (08:43)
--- NOTE | 2025-07-25 08:49 | P.PNOB_ITS ---
OB - PN: Subj Subjective Date/time seen: 07/25/25 08:49 Patient comments: no complaints, pain well controlled, incisional pain, tolerating diet and flatus present OB - PN: Obj Data Labs 07/25/25 04:48 Labs: Laboratory Results - last 24 hr 07/25/25 04:48 Hgb 12.6 Hct 39.5 OB - PN A/P Plan day: 1 Plan: routine care Comments: No problems, routine care Time Spent With Patient Time: Total time spent is greater than 50% in coordination of care (as documented) at patient's floor/unit and/or counseling patient: Exam 2 Const: General: comfortable, no acute distress and alert Resp: Effort & Inspection: normal respiratory effort Auscultation: no crackles, no rales and no rhonchi Cardio: Rate: regular rate Heart sounds: no click, no murmurs and no rubs GI: Inspection: non-distended GI Palp: No Tenderness to palpation present (GI) Auscultation: normal bowel sounds Other: Incision - CDI Extrem: General: normal to inspection, no pedal edema and no calf tenderness
--- NOTE | 2025-07-25 08:49 | PM.OBDSVD ---
DS: Admitting Diagnosis Discharge Date 07/25/2025 Admitting Diagnosis Term DS: Discharge Diagnosis Discharge Diagnosis (1) Term delivered: Code(s): O80 - Encounter for full-term uncomplicated delivery Status: Acute OB - DS: Summary OB Procedures : None OB Procedures Intrapartum: Spontaneous Vag Delivery OB Procedures: : None Peripartum Data Laceration Description: Perineal - 1st Degree Episiotomy description: None Time Spent with Patient Time attestation: Total time spent providing and/or coordinating discharge services: DS: Data Data Completed and Pending Labs on day of discharge: Labs from last 24 hours 07/25/25 04:48 Hgb 12.6 Hct 39.5 Discharge Plan Discharge Discharging Clinician: Gregory Monge Patient Disposition: Home Activity: pelvic rest Diet: regular Patient Instructions: Antibiotic Form Patient Language: Lao Stand Alone Forms: General Discharge Information Follow-up/Referrals: Gregory Monge MD [Physician, DENTAL OFFICE RECEPTIONIST] Discharge Medications: Continued sertraline 50 mg tablet 50 mg PO DAILY loratadine [Claritin] 10 mg tablet 10 mg PO PRN PNV no.95-ferrous fumarate-FA [] 28 mg iron- 800 mcg tablet 1 tablet PO DAILY Date of admission: 07/24/25 04:18 Primary Care Provider: PHYSICIAN,VIDEO CONTROL ENGINEER Admitting Provider: Bubba Siddiqi Attending physician on admission: Bubba Siddiqi Condition: Stable
--- NOTE | 2025-07-25 15:30 | WPDANLDPN2 ---
Anes-Prog Note L&D Date/Time: 07/25/25 15:30 Comfortable throughout: labor and delivery Neuraxial method: epidural Epidural/Spinal procedure site: clean & non-tender Neuro status: Neuro function grossly intact. Cardiovascular status: normal Respiratory status: normal Airway patency: baseline Mental status: baseline Post-Op hydration status: normal Vital Signs: Last Vital Signs Temp 36.6 C 07/25/25 08:40 Pulse 65 07/25/25 08:40 Resp 16 07/25/25 08:40 BP 131/70 07/25/25 08:40 Pulse Ox 99 07/25/25 08:40 O2 Del Method Room Air 07/25/25 08:40 Pain score (VAS): 1 I/O: Intake & Output 07/24/25 07/25/25 07/25/25 23:59 07:59 15:59 Intake Total 0 Balance 0 Post-procedural complaints: none Patient feedback: Patient satisfied with anesthetic care.
[2025-07-25 18:51] VITALS: BP 121/62; PULSE 72; RESP 16; TEMP 36.4; O2SAT 98
[2025-07-26] MEDS: ACETAMINOPHEN 325 MG TABLET 650 MG PO ×2 (01:05→08:04)
[2025-07-26] MEDS: IBUPROFEN 600 MG TABLET PO ×2 (01:06→08:04)
[2025-07-26 07:25] VITALS: BP 139/73; PULSE 63; RESP 18; TEMP 36.4; O2SAT 100
[2025-07-26] MEDS: SERTRALINE HCL 50 MG TABLET PO (08:03)
[2025-07-26] MEDS: DOCUSATE SODIUM 100 MG CAPSULE PO (08:03)
[2025-07-26] MEDS: MULTIVIT/MIN/PREN/FOL AC/IRON TABLET 1 TAB PO (08:04)
[2025-07-26] MEDS: LANOLIN (LANSINOH) 7.5 GM CREAM 1 APPLIC TOPICAL (08:04)
--- NOTE | 2025-07-26 08:05 | PC.NURSE ---
Patient viewed the discharge video Mother & Baby Care, The First Two Weeks. Patient was given the opportunity and encouraged to ask questions. Patient verbalized understanding of information shared and has been given the mother/baby guide for home reference.
--- NOTE | 2025-07-26 09:20 | PC.NURSE ---
Consulted with mother concerning needs and she shared her ability to independently latch infant optimally without pain. Mother is feeding appropriately for growth of and understands stimulating to eat if needed. She breastfeed her other child successfully, weaning 6 months before this . Infant has had appropriate feedings in the last 24 hours meets the outcomes for weight, output, blood sugar and jaundice at this time. Reinforced understanding of milk production, signs of adequate intake, transition of stool, prevention/relief of engorgement, plugged ducts, mastitis, responsive watching for feeding cues, community resources (declines [facility] referral), and when to call a provider using the resource of the feeding sheet along with the mom and baby guide. She has several breast pumps at home. Mother voiced understanding of the information shared, is confident to continue effectively her at home, when to call for assistance, denies any additional assistance or education at this time. Reported to the Primary RN.
[2025-07-27 09:38] VITALS: BP 130/80; PULSE 72; RESP 18; TEMP 36.8; O2SAT 99
== END 2025-07-26 11:35 | disposition home or self-care (01) | DRG 807 ==
LOC: ANHLDR 06:53 → ANHOB2 07-25 08:50 → ANHLDR 07-28 09:02 → ANHOB2 07-28 09:02
PROVIDERS: Advanced Practice Midwife; Admitting Provider Obstetrics & Gynecology; Visit Provider Obstetrics & Gynecology
DX: O62.3 Precipitate labor (principal); Z37.0 Single live birth; Z3A.39 39 weeks gestation of pregnancy; O70.0 First degree perineal laceration during delivery
CPT/HCPCS: 36415; 85014; 85018; 85025; 86593; 86850; 86900; 86901; A9270; J2210; J2590; J2795; J3010; J7120

== ENCOUNTER 2025-07-27 09:47 | Outpatient (CLI) | payer OTHER, SELFPAY ==
--- OUTSIDE RECORDS SUMMARY | 2024-04-04 16:30 | XMS_ITS ---
Author Organization [facility] [place] ([address]) Address [address] [facility] [place] [address] [place] [address] Care Team Providers Care Access Lead Name Role Phone Shama MEHTA, Leeann Primary Care Provider Unavailable LorraineBhumika Unavailable [phone] ZZ-Migration, Provider Unavailable Unavailab le [facility]AS[facility]ISIT [facility] Encounter Medications Medication SIG (Take, Route, Frequency, Duration) Notes Start Date End Date Status Fioricet 325 MG-50 MG-40 MG 2 TAB(S) ORALLY EVERY 4 HOURS; Duration: 0 *Please review and pick correct strength-formulat ion from Medispan options. If intended option is not shown, discontinue and re-order from Quick Search* Active Ketorolac Tromethamine 10 MG 3 tab(s) orally once a day; Duration: 5 day(s) Active ZyrTEC Allergy 10 MG 1 tab(s) orally once a day; Duration: 30 day(s) Active Cymbalta 30 MG 1 cap(s) orally once a day; Duration: 30 day(s) Active Flonase Allergy Relief 50 MCG/ACT 2 spray(s) intranasally once a day; Duration: 30 day(s) Active NASAL WASHES N/A DIRECTED INTRANASALLY NEEDED; Duration: 30 *Please review for potential replacement for e-prescription and drug interaction check* Active EpiPen 2-Addison 0.3 MG/0.3ML 0.3 mg intramuscularly once; Duration: 1 dose(s) Active SIT (CLUSTER) VARIABLE PER SCHEDULE SC PER SCHEDULE; Duration: TO BE DETERMINED *Please review for potential replacement for e-prescription and drug interaction check* Active SIT (TRADITIONAL) VARIABLE PER SCHEDULE SC PER SCHEDULE; Duration: TO BE DETERMINED *Please review for potential replacement for e-prescription and drug interaction check* Active Topamax 25 MG 2 1/2 tab(s) orally 2 times a day; Duration: 30 day(s) Active SIT (TRADITIONAL) VARIABLE PER SCHEDULE SC PER SCHEDULE; Duration: TO BE DETERMINED *Please review for potential replacement for e-prescription and drug interaction check* 06/09/2014 Active Encounters Encounter Location Date Provider Diagnosis [address] [place] [address] 04/04/2024 Provider Violeta Allergic rhinitis due to allergen 477.8 and Allergic rhinitis due to unspecified cause 477.9 Assessments Encounter Date Diagnosis (ICD Code) Assessment Notes Treatment Notes Treatment Clinical Notes Section Notes 04/04/2024 Allergic rhinitis due to allergen (ICD9-CM - 477.8) 04/04/2024 Allergic rhinitis due to unspecified cause (ICD9-CM - 477.9) Plan Of Treatment Medication Medication Name Sig Start Date Stop Date Notes SIT (TRADITIONAL) VARIABLE PER SCHEDULE SC PER SCHEDULE; Duration: TO BE DETERMINED *Please review for potential replacement for e-prescription and drug interaction check* SIT (TRADITIONAL) VARIABLE PER SCHEDULE SC PER SCHEDULE; Duration: TO BE DETERMINED 06/09/2014 *Please review for potential replacement for e-prescription and drug interaction check* Progress Notes * Sunshine FELIZ DDOB:1994 (30 yo F)Acc No.[id number]:04/04/2024 Patient: Alexus Sunshine GRIFFITH Provider: Wolf Love :1995 A ge:28 Y S ex:Female Date:04/04/2024 Address:[address] [place] [address] , [facility] Pcp:Taylor Ramírez Subjective: * Chief Complaints: * 1 . Multum To [facility]pan Conversion Encounter. * Medical History: * Medications: T aking SIT (CLUSTER) VARIABLE SEE RECORD PER SCHEDULE SC PER SCHEDULE , Notes to Pharmacist: *Please review for potential replacement for e-prescription and drug interaction check*, Taking EpiPen 2-Addison 0.3 MG/0.3ML Solution Auto-injector 0.3 mg intramuscularly once , Taking NASAL WASHES N/A 1 QUART OF STERILIZED TAP WATER OR DISTILLED WATER, 1 TSP NACL, 1 PINCH OF BAKING SODA DIRECTED INTRANASALLY NEEDED , Notes to Pharmacist: *Please review for potential replacement for e-prescription and drug interaction check*, Taking Topamax 25 MG Tablet 2 1/2 tab(s) orally 2 times a day , Taking Flonase Allergy Relief 50 MCG/ACT Suspension 2 spray(s) intranasally once a day , Taking Cymbalta 30 MG Capsule Delayed Release Particles 1 cap(s) orally once a day , Taking ZyrTEC Allergy 10 MG Tablet 1 tab(s) orally once a day , Taking Ketorolac Tromethamine 10 MG Tablet 3 tab(s) orally once a day , Taking Fioricet 325 MG-50 MG-40 MG TABLET 2 TAB(S) ORALLY EVERY 4 HOURS , Notes to Pharmacist: *Please review and pick correct strength-formulation from [employer]pan options. If intended option is not shown, discontinue and re-order from Quick Search* Objective: * Vitals: Assessment: * Assessment: 1. A llergic rhinitis due to allergen - 477.8 (Primary) 2 . A llergic rhinitis due to unspecified cause - 477.9 (Primary) Plan: * Treatment: 2. A llergic rhinitis due to unspecified cause Continue SIT (TRADITIONAL) SEE RECORD, VARIABLE, PER SCHEDULE, SC, PER SCHEDULE, TO BE DETERMINED, Notes to Pharmacist: *Please review for potential replacement for e-prescription and drug interaction check*. * Billing Information: * Visit Code: * Procedure Codes: * Electronic signature of Huong ANTHONY-Migration on 07/27/2025 at 10:28 AM CDT Sign off status: Pending * Provider: Wolf harley Migration Date: 0 04/04/2024 Generated for Sara awan/Josselyn/Clifton on: 1 10:28 AM CDT
--- NOTE | ~2025-07-27 | US_ITS ---
EXAMINATION: US venous doppler LE RT, 07/27/2025 10:29 CDT HISTORY: right leg pain and swelling Comparison: None Technique: Aly-scale and color Doppler images were attempted of the lower saphenofemoral junction, common femoral vein,superficial femoral vein, proximal deep femoral vein, proximal deep femoral vein, popliteal vein and posterior tibial veins. Findings: Deep Venous System:Normal flow, augmentation and compressibility. No echogenic thrombus identified. The contralateral saphenofemoral junction appears unremarkable. Superficial Venous SystemNo superficial thrombophlebitis. Soft tissues: Soft tissues are unremarkable. Impression: Negative for DVT. Reviewed, dictated and finalized at location P. Impression: Negative for DVT.
--- OUTSIDE RECORDS SUMMARY | 2025-07-27 10:29 | XMS_ITS | Patient Health Record ---
Author Organization [facility] [place] ([address]) Address [address] [facility] [address] [place] [address] Care Team Providers Care Director Of Student Financial Services Name Role Phone Shama MEHTA, Leeann Primary Care Provider Unavailable Lorraine Bhumika Unavailable [phone] Reason For Referral No Information Medications Medication SIG (Take, Route, Frequency, Duration) Notes Start Date End Date Status FIORICET 325 mg-50 mg-40 mg 2 tab(s) orally every 4 hours; Duration: 0 Active Fioricet 325 MG-50 MG-40 MG 2 TAB(S) ORALLY EVERY 4 HOURS; Duration: 0 *Please review and pick correct strength-formulat ion from Tbricks options. If intended option is not shown, [...] Status Risk Notes Problem Chronic allergic conjunctivitis (62842586) Chronic allergic conjunctivitis NOS (372.14) Active confirmed Problem Allergic rhinitis due to allergen (52128706) Allergic rhinitis due to allergen (477.8) Active confirmed Problem Headache (51867616) Headache (784.0) Active confirmed Plan Of Treatment No Information Insurance Providers Payer Name Payer Address Payer Phone Subscriber Number Group Number Insured Name Patient Relationship to Insured Coverage Start Date Coverage End Date [facility] [address] [facility], [place] [id number] Wan Hernandez Child - Insured has Financial Responsibility Medical (General) History Medical History History ICD Code Allergic rhinitis and conjunctivitis Migraine headache Surgical History Surgery Date(Month/Year) Removal of small piece of skull to relie ve pressure on the brain 2010 Tonsillectomy 2003 Oral surgery 2013 Hospitalization History Reason Date(Month/Year) Surgery on skull 2010
--- OUTSIDE RECORDS SUMMARY | 2025-07-27 10:29 | XMS_ITS | Clinical Summary ---
Author Organization [facility] Address [facility] [place] [address] Care Team Providers Care Business Administration Teacher Name Role Phone None, Provider MD Primary [...] unspecified laterality 2014 Overview (08/10/2019): Impression - [id number] Meli Bustamante: L WRIST Migraine 04/04/2015 Resolved [...] COVID-19 Vaccine ( season) 2025 04/01/2021, 02/26/2021 Influenza Adult (#1) 2025 08/10/2019 Hepatitis B Vaccines Completed 03/23/1997, 1996, 1996 [...] patient's age to complete this topic Insurance [employer] [facility] Care Teams Business Administration Teacher Relationship Specialty Start Date End Date None, Provider, MD PCP - General UNKNOWN PHYSICIAN SPECIALTY 09/19/23
--- OUTSIDE RECORDS SUMMARY | 2025-07-27 10:29 | XMS_ITS | Clinical Summary ---
Author Organization [facility] Address [address] [place] [address] Care Team Providers Care Desolderer Name Role Phone Meli Bustamante MD Primary Care Provider Source Comments [facility],non-owned Affiliates and Associated Physician Practices is amultiple site organization consisting of ambulatory clinics and hospital sitesin [place], [place] and [place]. This disclosure is being madepursuant to the Care Everywhere program and may not contain all information available regarding this patient. Last updated 18.[facility] Allergies No known active allergies Medications * Be aware that medications may not be up to date on this document. Alwaysverify current medications with the patient. vitamin D, ergocalciferol, (Drisdol) 1.25 MG (69172 UT) capsule Take 1 (one) capsule by [...] Department Care Team Description 07/09/2025 Orders Only [facility] [address] [place] [phone] Ivon Alejandro RN 06/29/2025 12:57 PM CDT - 06/29/2025 11:59 PM CDT Hospital Encounter [facility] [address] [place] [id number] Emmett Carvalho DO [employer] M[employer]DER Discharge Disposition: Home or Self Care 05/28/2025 1:40 PM CDT - 05/28/2025 11:59 PM CDT Hospital Encounter [facility] [address] [place] [id number] Donavan Crawford MD Discharge Disposition: Home or Self Care 04/27/2025 10:12 AM CDT - 04/27/2025 11:59 PM CDT Hospital Encounter [facility] [address] [place] [phone] Krzysztof Crawford MD Discharge Disposition: Home or Self Care 04/27/2025 Refill [facility] - [employer] [address] [place] [address], [address] [place] [phone] Daniel Cochran MD Refill Request from [...] Recorded Patient Health Questionnaire-2 Score 1 12/15/2024 [facility] - Occupational [...] place to sleep or slept in a fpc (including now)? No 12/31/2022 [place] Depression Scale Answer Date Recorded [place] Depression Scale Total 9 03/30/2025 The thought [...] (HCC) Encounter for follow-up ultrasound of anatomy ([facility]) PAP IG LB CT+NG+TV RFLX HPV ASCU Routine 12/10/2024 3:52 PM [employer]PECT[employer] NEGATIVE 7 weeks gestation of HIV-1 HIV-2 ANTIBODY + HIV P24 AG PANEL Routine 12/10/2024 3:34 PM [employer] NEGATIVE 7 weeks gestation of CULTURE STREP B Routine 11/30/2022 9:56 AM [employer] NEGATIVE 35 weeks gestation of GLUCOSE CHALLENGE Routine 10/01/2022 10: 00 AM [employer] NEGATIVE 23 weeks gestation of from Last 3 [...] History ====== OB History 3. Para 1 [id number] 1. live 2022. Gest. age 39 w [...] 6 lb 14 oz EFW by Hadlock ([id number]) overall normal range, but the AC is [...] glucose screen and prior history of LGA infant at term with no GDM. The overall [...] Z36.2: Encounter for other screening follow-up Procedures 39809: [place] [address]: Biophysical Profile W/O NST [facility] PACS Anatomical Region Laterality Modality Other 06/29/2025 1:00 PM CDT R Romel Monge MD [facility] ORDERABLES Edited Result - Final * PAP IG LB CT+NG+TV RFLX HPV ASCU (12/10/2024 3:52 PM INSPECTOR [employer] NEGATIVE) Diagnosis Comment [facility] ACCOUNT BILL Comment:NEGATIVE FOR [...] UTERINE CERVIX / Unknown 12/10/2024 3:52 PM [employer] [employer] NEGATIVE 12/10/2024 Comment:Cervix Release to pa t Narrative [facility] ACCOUNT BILL - 12/14/2024 5:09 PM INSPECTOR [employer] NEGATIVE Performed at: - [facility] [address] [id number] Electric Needle Specialist: Marianne Koehler MD, Phone: [phone] Performed at: - [facility] [address], [place] [id number] Electric Needle Specialist: Marianne Koehler MD, Phone: [phone] Specimen Comment: [id number] Specimen Comment: No. of containers..01 ThinPrep Vial Daniel Cochran MD LAB - PATHOLOGY/CYTOLOGY OR DERABLES Final Result Performing Organization Address [facility] Co de Phone Number [facility] ACCOUNT BILL [address] [place] [address] * HIV-1 HIV-2 ANTIBODY + HIV P24 AG PANEL (12/10/2024 3:34 PM INSPECTOR CIRCUIT[employer] NEGATIVE) Pathologist [facility] HIV Screen 4th Generation w Reflex Non Reactive Non Reactive [facility] ACCOUNT BILL Comment: HIV-1/HIV-2 antibodies and HIV-1 p24 antigen were NOT detected. There is no laboratory evidence of HIV infection. HIV Negative Blood BLOOD SPECIMEN / Unknown 12/10/2024 3:34 PM [employer] NEGATIVE 12/10/2024 Narrative [facility] ACCOUNT BILL - 12/11/2024 7:09 AM INSPECT[employer] NEGATIVE Performed at: - [facility] [id number] Electric Needle Specialist: Kasi Powers PhD, Phone: [phone] Daniel Cochran MD LAB - CHEMISTRY ORDERABLES Final Result Performing Organization Address City/[facility] Co de Phone Number [facility] ACCOUNT BILL [address] [place] [address] * (ABNORMAL) CULTURE STREP B (11/30/2022 9:56 AM INSPECTOR [employer] NEGATIVE) Pathologist [facility] Strep Group B Culture Positive( A) Negative [facility] ACCOUNT BILL Comment: Centers for Disease Control and Prevention (CDC) and [place] [employer] of Obstetricians and Gynecologists (ACOG) guidelines [...] MISCELLANEOUS SAMPLES / Unknown 11/30/2022 9:56 AM INSPECT[employer] NEGATIVE 11/30/2022 Narrative Resulting Agency Comment Lab Testing performed at: [facility] [id number] Daniel Cochran MD LAB - MICROBIOLOGY ORDERABL ES Final Result Performing Organization Address City/[facility] Co de Phone Number [facility] ACCOUNT BILL [address] [place] [address] * GLUCOSE CHALLENGE (10/01/2022 10:00 AM INSPECTOR CIRCUIT[employer] NEGATIVE) [facility] GTT 1Hr 115 70 - 139 mg/dL [facility] ACCOUNT BILL Comment: According to ADA, a glucose threshold of >139 mg/dL after 50-gram load identifies approximately 80% of women with gestational diabetes mellitus, while the sensitivity is further increased to approximately 90% by a threshold of >129 mg/dL. FASTING Blood BLOOD SPECIMEN / Unknown 10/01/2022 10:00 AM [employer] NEGATIVE 10/01/2022 Narrative Resulting Agency Comment Lab Testing performed at: [facility] [id number] Daniel Cochran MD LAB - CHEMISTRY ORDERABLES Final Result Performing Organization Address City/[facility] Co de Phone Number [facility] ACCOUNT BILL [address] [place] [address] from Last 3 Months or Most Recently Relevant to Health Maintenance Insurance [facility] Advance Directives * Full Code (Latest Code Status on File) Date Activated Date Inactivated Comments 12/31/2022 6:16 AM 01/02/2023 9:06 PM * Full Code Date Activated Date Inactivated Comments 12/31/2022 6:02 AM 12/31/2022 6:16 AM Care Teams Desolderer Relationship Specialty Start Date End Date Meli Bustamante MD PCP - General Internal Medicine 06/16/18
--- NOTE | 2025-07-27 11:05 | PC.NURSE ---
Called Dr. Siddiqi with ultrasound report. No DVT noted. February D/C home.
== END 2025-07-27 11:20 | disposition home or self-care (01) ==
LOC: ANHOBOP 09:57 → ANHOBPP 09:59
PROVIDERS: Visit Provider Obstetrics & Gynecology
DX: M79.661 Pain in right lower leg (principal)
CPT/HCPCS: 93971; 99199